=== PATIENT | female | born 1980 | race Caucasian/White ===

== ENCOUNTER 2019-03-21 15:32 | Observation (INO) | payer OTHER ==
[2019-03-21] MEDS ORDERED: Sodium Chloride 0.9% 2.5 ML Syringe FLUSH PRN (16:11)
[2019-03-21] MEDS ORDERED: Sodium Chloride 0.9% 10 ML Syringe FLUSH PRN (16:11)
--- NOTE | 2019-03-21 16:30 | EDM.PDOC ---
ED HPI GENERAL MEDICAL PROBLEM - General Chief Complaint: General Stated Complaint: BLACK OUT Time Seen by Provider: 03/21/19 16:30 Source of Information: Reports: Patient History Limitations: Reports: No Limitations - History of Present Illness INITIAL COMMENTS - FREE TEXT/NARRATIVE: HISTORY AND PHYSICAL: History of present illness: Patient is a 38-year-old female presents to the ED With complaint of near syncope. She was recently diagnosed with Hodgkin's lymphoma, sees oncology in [place] and scheduled to start chemotherapy next week. She states over the past couple of days she is having episodes where her vision goes black and she gets slightly dizzy. She has not yet passed out but today felt like she was going to. She has a mass on the right side of her neck and the near-syncope only occurs when she has the right arm above her head such as when brushing or washing her hair. She denies fevers, chills, chest pain, shortness of breath, abdominal pain. She does have nausea and vomiting but this is not new or worsening. She denies dysuria or hematuria. Review of systems: As per history of present illness and below otherwise all systems reviewed and negative. Past medical history: As per history of present illness and as reviewed below otherwise noncontributory. Surgical history: As per history of present illness and as reviewed below otherwise noncontributory. Social history: No reported history of drug or alcohol abuse. Family history: As per history of present illness and as reviewed below otherwise noncontributory. Physical exam: General: Patient sitting comfortably in no acute distress and nontoxic appearing HEENT: There is a large mass noted to the right supraclavicular area. Atraumatic , normocephalic, pupils reactive, negative for conjunctival pallor or scleral icterus, mucous membranes moist, throat clear, neck supple, nontender, trachea midline. No meningeal signs. Lungs: Clear to auscultation, breath sounds equal bilaterally, chest nontender. Heart: S1S2, regular, negative for clicks, rubs, or overt murmur. Abdomen: Soft, nondistended, nontender. Negative for masses or hepatosplenomegaly. Negative for costovertebral tenderness. No rigidity, rebound , guarding. Pelvis: Stable nontender. Genitourinary: Deferred. Rectal: Deferred. Extremities: Atraumatic, negative for cords or calf pain. Neurovascular unremarkable. Neuro: Awake, alert, oriented. Cranial nerves II through XII unremarkable. Cerebellum unremarkable. Motor and sensory unremarkable throughout. Exam nonfocal. Notes: Unable to reach patient's oncologist. Patient was admitted to observation. Diagnostics: CBC, CMP, lactate, UA, lactate, blood culture x 2, CT Neck w/ and w/o contrast Therapeutics: 1L NS IV 1g Rocephin IV Prescriptions: Impression: UTI Plan: Discussed with Dr. Garcia, patient admitted to observation for IV antibiotics. Definitive disposition and diagnosis as appropriate pending reevaluation and review of above. - Related Data Allergies Allergy/AdvReac Type Severity Reaction Status Date / Time No Known Allergies Allergy Verified 03/21/19 15:45 Home Meds: Home Meds Albuterol Sulfate [Albuterol Sulfate Hfa] 1 03/21/19 [History] Ondansetron [Zofran] 4 mg PO Q6H 03/21/19 [History] Venlafaxine [Effexor] 25 mg PO 03/21/19 [History] ED ROS GENERAL - Review of Systems Review Of Systems: Comprehensive ROS is negative, except as noted in HPI. ED EXAM, GENERAL - Physical Exam Exam: See Below (see dictation) Course - Vital Signs Last Recorded V/S: Last Vital Signs Temp 98.0 F 03/21/19 15:40 Pulse 94 03/21/19 18:24 Resp 16 03/21/19 18:24 BP 121/67 03/21/19 18:24 Pulse Ox 94 L 03/21/19 18:24 Orthostatic Blood Pressure [ 101/60 Standing] Orthostatic Blood Pressure [ 99/56 Sitting] Orthostatic Blood Pressure [ 99/63 Supine] - Orders/Labs/Meds Orders: Active Orders 24 hr Category Date Time Status Admission Status [Patient Status] [ADT] Stat ADT 03/21/19 19:39 Ordered Chest 1V Frontal [CR] Stat Exams 03/21/19 19:04 Ordered CULTURE BLOOD [BC] Stat Lab 03/21/19 16:50 Received CULTURE BLOOD [BC] Stat Lab 03/21/19 17:00 Received CULTURE URINE [RM] Stat Lab 03/21/19 15:49 Received Sodium Chloride 0.9% [Saline Flush] Med 03/21/19 16:11 Active 10 ml FLUSH ASDIRECTED PRN Sodium Chloride 0.9% [Saline Flush] Med 03/21/19 16:11 Active 2.5 ml FLUSH ASDIRECTED PRN Blood Culture x2 Reflex Set [OM.PC] Stat Oth 03/21/19 16:43 Ordered Saline Lock Insert [OM.PC] Stat Oth 03/21/19 16:11 Ordered Medication Orders Sodium Chloride (Saline Flush) 10 ml FLUSH ASDIRECTED PRN PRN Reason: Keep Vein Open Sodium Chloride (Saline Flush) 2.5 ml FLUSH ASDIRECTED PRN PRN Reason: Keep Vein Open Labs: Laboratory Tests 03/21/19 03/21/19 03/21/19 Range/Units 15:49 15:49 16:23 WBC 18.61 H (4.0-11.0) K/uL RBC 4.05 L (4.30-5.90) M/uL Hgb 9.7 L (12.0-16.0) g/dL Hct 30.6 L (36.0-46.0) % MCV 75.6 L (80.0-98.0) fL MCH 24.0 L (27.0-32.0) pg MCHC 31.7 (31.0-37.0) g/dL RDW Std Deviation 43.6 (28.0-62.0) fl RDW Coeff of [place] 16 H (11.0-15.0) % Plt Count 579 H (150-400) K/uL MPV 7.90 (7.40-12.00) fL Neut % (Auto) 85.4 H (48.0-80.0) % Lymph % (Auto) 6.9 L (16.0-40.0) % [place] % (Auto) 6.8 (0.0-15.0) % Eos % (Auto) 0.8 (0.0-7.0) % Baso % (Auto) 0.1 (0.0-1.5) % Neut # (Auto) 15.9 H (1.4-5.7) K/uL Lymph # (Auto) 1.3 (0.6-2.4) K/uL [place] # (Auto) 1.3 H (0.0-0.8) K/uL Eos # (Auto) 0.1 (0.0-0.7) K/uL Baso # (Auto) 0.0 (0.0-0.1) K/uL Nucleated RBC % 0.0 /100WBC Nucleated RBCs # 0 K/uL Lactate (0.20-2.00) mmol/L Sodium (136-145) mmol/L Potassium (3.5-5.1) mmol/L Chloride (98-107) mmol/L Carbon Dioxide (21.0-32.0) mmol/L BUN (7.0-18.0) mg/dL Creatinine (0.6-1.0) mg/dL Est Cr Clr Drug Dosing mL/min Estimated GFR (MDRD) ml/min Glucose (74-106) mg/dL Calcium (8.5-10.1) mg/dL Total Bilirubin (0.2-1.0) mg/dL AST (15-37) IU/L ALT (14-63) IU/L Alkaline Phosphatase (46-116) U/L Troponin I (0.000-0.056) ng/mL Total Protein (6.4-8.2) g/dL Albumin (3.4-5.0) g/dL Globulin (2.6-4.0) g/dL Albumin/Globulin Ratio (0.9-1.6) Urine Color ORANGE Urine Appearance HAZY Urine pH 6.0 (5.0-8.0) Ur Specific [place] 1.025 (1.001-1.035) Urine Protein 30 H (NEGATIVE) mg/dL Urine Glucose (UA) NEGATIVE (NEGATIVE) mg/dL Urine Ketones TRACE H (NEGATIVE) mg/dL Urine Occult Blood NEGATIVE (NEGATIVE) Urine Nitrite POSITIVE H (NEGATIVE) Urine Bilirubin MODERATE H (NEGATIVE) Urine Ictotest POSITIVE Urine Urobilinogen 4.0 H (<2.0) EU/dL Ur Leukocyte Esterase TRACE H (NEGATIVE) Urine RBC 0-3 (0-2/HPF) Urine WBC 3-5 (0-5/HPF) Ur Epithelial Cells FEW (NONE-FEW) Urine Bacteria 2+ H (NEGATIVE) Hyaline Casts 0-2 (0-2/LPF) Urine Mucus MODERATE (NONE-MOD) Urine HCG, Qual NEGATIVE (NEGATIVE) 03/21/19 03/21/19 Range/Units 16:23 17:00 WBC (4.0-11.0) K/uL RBC (4.30-5.90) M/uL Hgb (12.0-16.0) g/dL Hct (36.0-46.0) % MCV (80.0-98.0) fL MCH (27.0-32.0) pg MCHC (31.0-37.0) g/dL RDW Std Deviation (28.0-62.0) fl RDW Coeff of [place] (11.0-15.0) % Plt Count (150-400) K/uL MPV (7.40-12.00) fL Neut % (Auto) (48.0-80.0) % Lymph % (Auto) (16.0-40.0) % [place] % (Auto) (0.0-15.0) % Eos % (Auto) (0.0-7.0) % Baso % (Auto) (0.0-1.5) % Neut # (Auto) (1.4-5.7) K/uL Lymph # (Auto) (0.6-2.4) K/uL [place] # (Auto) (0.0-0.8) K/uL Eos # (Auto) (0.0-0.7) K/uL Baso # (Auto) (0.0-0.1) K/uL Nucleated RBC % /100WBC Nucleated RBCs # K/uL Lactate 0.7 (0.20-2.00) mmol/L Sodium 133 L (136-145) mmol/L Potassium 4.5 (3.5-5.1) mmol/L Chloride 95 L (98-107) mmol/L Carbon Dioxide 28.6 (21.0-32.0) mmol/L BUN 17 (7.0-18.0) mg/dL Creatinine 0.8 (0.6-1.0) mg/dL Est Cr Clr Drug Dosing 90.50 mL/min Estimated GFR (MDRD) > 60.0 ml/min Glucose 194 H (74-106) mg/dL Calcium 9.6 (8.5-10.1) mg/dL Total Bilirubin 0.7 (0.2-1.0) mg/dL AST 10 L (15-37) IU/L ALT 10 L (14-63) IU/L Alkaline Phosphatase 419 H (46-116) U/L Troponin I < 0.050 (0.000-0.056) ng/mL Total Protein 8.5 H (6.4-8.2) g/dL Albumin 2.2 L (3.4-5.0) g/dL Globulin 6.3 H (2.6-4.0) g/dL Albumin/Globulin Ratio 0.4 L (0.9-1.6) Urine Color Urine Appearance Urine pH (5.0-8.0) Ur Specific [place] (1.001-1.035) Urine Protein (NEGATIVE) mg/dL Urine Glucose (UA) (NEGATIVE) mg/dL Urine Ketones (NEGATIVE) mg/dL Urine Occult Blood (NEGATIVE) Urine Nitrite (NEGATIVE) Urine Bilirubin (NEGATIVE) Urine Ictotest Urine Urobilinogen (<2.0) EU/dL Ur Leukocyte Esterase (NEGATIVE) Urine RBC (0-2/HPF) Urine WBC (0-5/HPF) Ur Epithelial Cells (NONE-FEW) Urine Bacteria (NEGATIVE) Hyaline Casts (0-2/LPF) Urine Mucus (NONE-MOD) Urine HCG, Qual (NEGATIVE) Meds: Medications Generic Name Dose Route Start Last Admin Trade Name Freq PRN Reason Stop Dose Admin Sodium Chloride 10 ml 03/21/19 16:11 Saline Flush FLUSH ASDIRECTED PRN Keep Vein Open Sodium Chloride 2.5 ml 03/21/19 16:11 Saline Flush FLUSH ASDIRECTED PRN Keep Vein Open Discontinued Medications Generic Name Dose Route Start Last Admin Trade Name Freq PRN Reason Stop Dose Admin Ceftriaxone Sodium/Dextrose 1 50 mls @ 100 mls/hr 03/21/19 16:44 03/21/19 17: 09 gm/ Premix IV 03/21/19 17:13 100 mls/hr ONETIME ONE Administration Sodium Chloride 1,000 mls @ 999 mls/hr 03/21/19 17:11 03/21/19 18:23 Normal Saline IV 03/21/19 18:11 999 mls/hr STAT ONE Infusion Iopamidol 80 ml 03/21/19 18:22 03/21/19 18:23 Isovue Multipack-370 (76%) IVPUSH 03/21/19 18:23 80 ml ONETIME STA Administration Departure - Departure Time of Disposition: 19:19 Disposition: Refer to Observation Condition: Good Clinical Impression: UTI (urinary tract infection), Sepsis - Discharge Information Referrals: Edgardo Son MD [Primary Care Provider] - Forms: ED Department Discharge Sepsis Event Note - Evaluation Sepsis Screening Result: No Definite Risk - Focused Exam Vital Signs: Vital Signs Temp Pulse Resp BP Pulse Ox 03/21/19 18:24 94 16 121/67 94 L 03/21/19 15:40 98.0 F 115 H 16 95/55 L 94 L Date Exam was Performed: 03/21/19 Time Exam was Performed: 19:41 - My Orders Last 24 Hours: My Active Orders 03/21/19 16:11 Sodium Chloride 0.9% [Saline Flush] 10 ml FLUSH ASDIRECTED PRN Sodium Chloride 0.9% [Saline Flush] 2.5 ml FLUSH ASDIRECTED PRN Saline Lock Insert [OM.PC] Stat 03/21/19 16:43 Blood Culture x2 Reflex Set [OM.PC] Stat 03/21/19 16:50 CULTURE BLOOD [BC] Stat 03/21/19 17:00 CULTURE BLOOD [BC] Stat 03/21/19 19:04 Chest 1V Frontal [CR] Stat 03/21/19 19:39 Admission Status [Patient Status] [ADT] Stat - Assessment/Plan Last 24 Hours: My Active Orders 03/21/19 16:11 Sodium Chloride 0.9% [Saline Flush] 10 ml FLUSH ASDIRECTED PRN Sodium Chloride 0.9% [Saline Flush] 2.5 ml FLUSH ASDIRECTED PRN Saline Lock Insert [OM.PC] Stat 03/21/19 16:43 Blood Culture x2 Reflex Set [OM.PC] Stat 03/21/19 16:50 CULTURE BLOOD [BC] Stat 03/21/19 17:00 CULTURE BLOOD [BC] Stat 03/21/19 19:04 Chest 1V Frontal [CR] Stat 03/21/19 19:39 Admission Status [Patient Status] [ADT] Stat
[2019-03-21] MEDS ORDERED: cefTRIAXone 1 GM in Premix Bag 1 BAG IV ONE (16:44)
[2019-03-21 17:03] LABS: BLOOD UREA NITROGEN,BUN 17 mg/dL (7.0-18.0); CARBON DIOXIDE,CO2 28.6 mmol/L (21.0-32.0); CHLORIDE,CL 95 mmol/L (98-107); GLUCOSE RANDOM 194 mg/dL (74-106); POTASSIUM,K 4.5 mmol/L (3.5-5.1); SODIUM,NA 133 mmol/L (136-145)
[2019-03-21] MEDS ORDERED: Sodium Chloride 0.9% 1,000 ML IV ONE ×2 (17:11→19:42)
[2019-03-21] MEDS ORDERED: Iopamidol 755 MG/ML 200 ML Multipack Bottle IVPUSH STA (18:22)
--- NOTE | 2019-03-21 19:01 | CT ---
INDICATION: RIGHT NECK MASS DUE TO HODGKINS LYMPHOMA, RECENT PRE-SCOPE WITH RT ARM ABOVE HEAD TECHNIQUE: CT of the neck before and after administration of Omnipaque 350 IV iodinated contrast agent. Coronal and sagittal reconstructions. COMPARISON: 01/23/2019 CT FINDINGS: Interval enlargement of a right level 3 conglomerate of metastatic lymph nodes measuring up to 2.5 centimeters x 2 centimeters axially previously 2.2 x 1.7 cm interval enlargement of a left level 4 lymph node measuring 2.3 x 1.5 cm previously 1.7 by 1.3 cm, interval enlargement of several conglomerate lymph nodes in the right suprascapular region measuring up to 8.1 centimeter previously 7.0 cm. All the major vascular structures opacify normally with contrast material. The salivary glands and thyroid gland are normal in appearance. Mild right maxillary sinus disease. The oral cavity, pharyngeal and laryngeal spaces are normal in appearance. No periapical lucencies surrounding the visualized teeth. The suprahyoid and infrahyoid spaces are normal. No lytic or blastic process within the imaged osseous structures. The paraspinous muscles are symmetric and normal in appearance. Visualized portions of the brain are within normal limits. The orbital contents are normal. New moderate right pleural effusion. Enlargement of the 2.8 cm mass in the right lung apex previously 2.1 cm. Several new left upper lobe metastases are noted. IMPRESSION: 1. Enlargement of bilateral cervical and supraclavicular lymph nodes. Enlargement of mediastinal lymph nodes. 2. New moderate right pleural effusion. Enlargement of the 2.8 cm mass in the right lung apex previously 2.1 cm. Several new left upper lobe metastases are noted. 3. Above findings are consistent with progression of disease. Please note that all CT scans at this facility use dose modulation, iterative reconstruction, and/or weight-based dosing when appropriate to reduce radiation dose to as low as reasonably achievable. Dictated by Thong Baker MD @ Mar 21 2019 6:47PM Signed by Dr. Thong Baker @ Mar 21 2019 7:00PM
[2019-03-21] MEDS ORDERED: Ondansetron 4 MG/2 ML SDV IVPUSH PRN (19:57)
--- NOTE | 2019-03-21 20:22 | CR ---
Indication: Pain, shortness of breath Technique: Chest 1 view Comparison: January 16, 2019 Findings/Impression: Stable cardiac size. There is consolidation in the mid to lower right lung concerning for pneumonia. There is also a new round focal area of density along the left mid cardiac margin which may represent a no other site of infection. No pneumothorax. Likely small right pleural effusion. Consider chest CT for further evaluation. Residual oral contrast noted in the collecting systems of the kidneys bilaterally. Osseous structures are intact. Dictated by Radha Beth MD @ Mar 21 2019 8:21PM Signed by Dr. Radha Beth @ Mar 21 2019 8:21PM
--- NOTE | 2019-03-21 22:04 | PCM.HP.2 ---
H&P History of Present Illness - General Date of Service: 03/21/19 Admit Problem/Dx: Admission Diagnosis/Problem Admission Diagnosis/Problem UTI, Urinary tract infectious disease - History of Present Illness Initial Comments - Free Text/Narative: Patient is a 38-year-old female with PMH of HL and DM type 1 presents to the ED With complaint of near syncope. She was recently diagnosed with Hodgkin's lymphoma in December and follows up at [place], she states she is scheduled to start chemotherapy next week. Patient states that over past couple of days she is having episodes per-syncope, her vision goes black and feels lightheaded. Patient has a mass on the right side of her neck and symptoms occur when she has the right arm above her head which shower or brushing her hair. Patient denies fevers, chills, chest pain, shortness of breath, abdominal pain, nausea and vomiting, dysuria or hematuria. Patient was found to have leucocytosis and UA showed UTI. CXR was obtained in ER showed opacification, possible PNA although patient denied any cough, sob, fever, could be worsening malignancy. Patient is being admitted for further management. Duration of Symptoms: Reports: Day(s):, Recurring - Related Data Allergies/Adverse Reactions: Allergies Allergy/AdvReac Type Severity Reaction Status Date / Time No Known Allergies Allergy Verified 03/22/19 00:14 Home Medications: Home Meds Albuterol Sulfate [Albuterol Sulfate Hfa] 1 03/21/19 [History] Insulin Glarg,Human.Rec.Analog [Lantus] 10 mg BEDTIME 03/21/19 [History] Ondansetron [Zofran] 4 mg PO Q6H 03/21/19 [History] Venlafaxine [Effexor] 25 mg PO 03/21/19 [History] Past Medical History HEENT History: Reports: Allergic Rhinitis Other HEENT History: summer allergies [employer] History: Reports: Other OB/BYN History: 1 Endocrine/Metabolic History: Reports: Diabetes, Type II Oncologic (Cancer) History: Reports: Lymphoma - Past Surgical History HEENT Surgical History: Reports: None Social & Family History - Family History Family Medical History: Noncontributory HEENT: Reports: Allergic Rhinitis Cardiac: Reports: CA Other Respiratory Family Hisory: emphysema Other GI Family History: ulcers Dermatologic: Reports: None Oncologic: Reports: Breast, Colon, Hodgkin's Lymphoma, Non-Hodgkin's Lymphoma - Tobacco Use Smoking Status *Q: Never Smoker Second Hand Smoke Exposure: No - Caffeine Use Caffeine Use: Reports: None - Recreational Drug Use Recreational Drug Use: No H&P Review of Systems - Review of Systems: Review Of Systems: See Below General: Reports: Weight Loss. Denies: Fever, Chills, Malaise, Weight Gain HEENT: Denies: Dysphasia, Ear Pain, Eye Pain Pulmonary: Denies: Shortness of Breath, Wheezing, Pleuritic Chest Pain Cardiovascular: Reports: Lightheadedness. Denies: Chest Pain, Palpitations, Dyspnea on Exertion Gastrointestinal: Denies: Abdominal Pain, Anorexia, Black Stool Genitourinary: Denies: Dysuria, Frequency, Burning Musculoskeletal: Denies: Neck Pain, Shoulder Pain, Arm Pain Skin: Denies: Cyanosis, Jaundice, Mottled Psychiatric: Denies: Confusion, Depression, Mood Lability Exam - Vital Signs Vital Signs: Last Vital Signs Temp 36.6 C 03/21/19 20:31 Pulse 95 03/21/19 20:31 Resp 16 03/21/19 20:31 BP 99/64 03/21/19 20:31 Pulse Ox 95 03/21/19 20:31 Orthostatic Blood Pressure [ 101/60 Standing] Orthostatic Blood Pressure [ 99/56 Sitting] Orthostatic Blood Pressure [ 99/63 Supine] Weight: 58.468 kg - Exam General: Alert, Oriented, Cooperative Neck: Trachea Midline, Other (LAD, mass right neck, anterior triangle ) Lungs: Clear to Auscultation, Normal Respiratory Effort Cardiovascular: Regular Rate, Regular Rhythm, Normal S1, Normal S2 GI/Abdominal Exam: Normal Bowel Sounds, Soft, Non-Tender, No Organomegaly, No Distention, No Abnormal Bruit Peripheral Pulses: 3+: Dorsalis Pedis (L), Dorsalis Pedis (R) Skin: Warm, Dry - Patient Data Lab Results Last 24 hrs: Laboratory Results - last 24 hr 03/21/19 03/21/19 03/21/19 Range/Units 15:49 15:49 16:23 WBC 18.61 H (4.0-11.0) K/uL RBC 4.05 L (4.30-5.90) M/uL Hgb 9.7 L (12.0-16.0) g/dL Hct 30.6 L (36.0-46.0) % MCV 75.6 L (80.0-98.0) fL MCH 24.0 L (27.0-32.0) pg MCHC 31.7 (31.0-37.0) g/dL RDW Std Deviation 43.6 (28.0-62.0) fl RDW Coeff of [place] 16 H (11.0-15.0) % Plt Count 579 H (150-400) K/uL MPV 7.90 (7.40-12.00) fL Neut % (Auto) 85.4 H (48.0-80.0) % Lymph % (Auto) 6.9 L (16.0-40.0) % Brown % (Auto) 6.8 (0.0-15.0) % Eos % (Auto) 0.8 (0.0-7.0) % Baso % (Auto) 0.1 (0.0-1.5) % Neut # (Auto) 15.9 H (1.4-5.7) K/uL Lymph # (Auto) 1.3 (0.6-2.4) K/uL Brown # (Auto) 1.3 H (0.0-0.8) K/uL Eos # (Auto) 0.1 (0.0-0.7) K/uL Baso # (Auto) 0.0 (0.0-0.1) K/uL Nucleated RBC % 0.0 /100WBC Nucleated RBCs # 0 K/uL Lactate (0.20-2.00) mmol/L Sodium (136-145) mmol/L Potassium (3.5-5.1) mmol/L Chloride (98-107) mmol/L Carbon Dioxide (21.0-32.0) mmol/L BUN (7.0-18.0) mg/dL Creatinine (0.6-1.0) mg/dL Est Cr Clr Drug Dosing mL/min Estimated GFR (MDRD) ml/min Glucose (74-106) mg/dL Calcium (8.5-10.1) mg/dL Total Bilirubin (0.2-1.0) mg/dL AST (15-37) IU/L ALT (14-63) IU/L Alkaline Phosphatase (46-116) U/L Troponin I (0.000-0.056) ng/mL Total Protein (6.4-8.2) g/dL Albumin (3.4-5.0) g/dL Globulin (2.6-4.0) g/dL Albumin/Globulin Ratio (0.9-1.6) Urine Color ORANGE Urine Appearance HAZY Urine pH 6.0 (5.0-8.0) Ur Specific [place] 1.025 (1.001-1.035) Urine Protein 30 H (NEGATIVE) mg/dL Urine Glucose (UA) NEGATIVE (NEGATIVE) mg/dL Urine Ketones TRACE H (NEGATIVE) mg/dL Urine Occult Blood NEGATIVE (NEGATIVE) Urine Nitrite POSITIVE H (NEGATIVE) Urine Bilirubin MODERATE H (NEGATIVE) Urine Ictotest POSITIVE Urine Urobilinogen 4.0 H (<2.0) EU/dL Ur Leukocyte Esterase TRACE H (NEGATIVE) Urine RBC 0-3 (0-2/HPF) Urine WBC 3-5 (0-5/HPF) Ur Epithelial Cells FEW (NONE-FEW) Urine Bacteria 2+ H (NEGATIVE) Hyaline Casts 0-2 (0-2/LPF) Urine Mucus MODERATE (NONE-MOD) Urine HCG, Qual NEGATIVE (NEGATIVE) 03/21/19 03/21/19 Range/Units 16:23 17:00 WBC (4.0-11.0) K/uL RBC (4.30-5.90) M/uL Hgb (12.0-16.0) g/dL Hct (36.0-46.0) % MCV (80.0-98.0) fL MCH (27.0-32.0) pg MCHC (31.0-37.0) g/dL RDW Std Deviation (28.0-62.0) fl RDW Coeff of [place] (11.0-15.0) % Plt Count (150-400) K/uL MPV (7.40-12.00) fL Neut % (Auto) (48.0-80.0) % Lymph % (Auto) (16.0-40.0) % Brown % (Auto) (0.0-15.0) % Eos % (Auto) (0.0-7.0) % Baso % (Auto) (0.0-1.5) % Neut # (Auto) (1.4-5.7) K/uL Lymph # (Auto) (0.6-2.4) K/uL Brown # (Auto) (0.0-0.8) K/uL Eos # (Auto) (0.0-0.7) K/uL Baso # (Auto) (0.0-0.1) K/uL Nucleated RBC % /100WBC Nucleated RBCs # K/uL Lactate 0.7 (0.20-2.00) mmol/L Sodium 133 L (136-145) mmol/L Potassium 4.5 (3.5-5.1) mmol/L Chloride 95 L (98-107) mmol/L Carbon Dioxide 28.6 (21.0-32.0) mmol/L BUN 17 (7.0-18.0) mg/dL Creatinine 0.8 (0.6-1.0) mg/dL Est Cr Clr Drug Dosing 90.50 mL/min Estimated GFR (MDRD) > 60.0 ml/min Glucose 194 H (74-106) mg/dL Calcium 9.6 (8.5-10.1) mg/dL Total Bilirubin 0.7 (0.2-1.0) mg/dL AST 10 L (15-37) IU/L ALT 10 L (14-63) IU/L Alkaline Phosphatase 419 H (46-116) U/L Troponin I < 0.050 (0.000-0.056) ng/mL Total Protein 8.5 H (6.4-8.2) g/dL Albumin 2.2 L (3.4-5.0) g/dL Globulin 6.3 H (2.6-4.0) g/dL Albumin/Globulin Ratio 0.4 L (0.9-1.6) Urine Color Urine Appearance Urine pH (5.0-8.0) Ur Specific [place] (1.001-1.035) Urine Protein (NEGATIVE) mg/dL Urine Glucose (UA) (NEGATIVE) mg/dL Urine Ketones (NEGATIVE) mg/dL Urine Occult Blood (NEGATIVE) Urine Nitrite (NEGATIVE) Urine Bilirubin (NEGATIVE) Urine Ictotest Urine Urobilinogen (<2.0) EU/dL Ur Leukocyte Esterase (NEGATIVE) Urine RBC (0-2/HPF) Urine WBC (0-5/HPF) Ur Epithelial Cells (NONE-FEW) Urine Bacteria (NEGATIVE) Hyaline Casts (0-2/LPF) Urine Mucus (NONE-MOD) Urine HCG, Qual (NEGATIVE) Result Diagrams: 03/23/19 05:50 03/23/19 05:50 Sepsis Event Note - Evaluation Sepsis Screening Result: No Definite Risk - Focused Exam Vital Signs: Vital Signs Temp Pulse Resp BP Pulse Ox 03/21/19 20:31 36.6 C 95 16 99/64 95 03/21/19 18:24 94 16 121/67 94 L 03/21/19 15:40 36.7 C 115 H 16 95/55 L 94 L Date Exam was Performed: 03/23/19 Time Exam was Performed: 14:06 - Problem List (1) UTI (urinary tract infection) SNOMED Code(s): 68210161 ICD Code: N39.0 - URINARY TRACT INFECTION, SITE NOT SPECIFIED Status: Acute Current Visit: Yes (2) Sepsis SNOMED Code(s): 62633737 ICD Code: A41.9 - SEPSIS, UNSPECIFIED ORGANISM Status: Acute Current Visit: Yes Problem List Initiated/Reviewed/Updated: Yes Orders Last 24hrs: Active Orders 24 hr Category Date Time Status Admission Status [Patient Status] [ADT] Stat ADT 03/21/19 19:44 Active Ambulate [RC] ASDIRECTED Care 03/21/19 19:57 Active Antiembolic Devices [RC] PER UNIT ROUTINE Care 03/21/19 20:00 Active Oxygen Therapy [RC] PRN Care 03/21/19 19:58 Active VTE/DVT Education [RC] PER UNIT ROUTINE Care 03/21/19 19:58 Active Vital Signs [RC] Q4H Care 03/21/19 19:58 Active ADA Diabetic [[place] [employer] Diet] [DIET Diet 03/22/19 Breakfast Active ] BMP [BASIC METABOLIC PANEL,BMP] [CHEM] AM Lab 03/22/19 05:11 Ordered CBC WITH AUTO DIFF [HEME] AM Lab 03/22/19 05:11 Ordered CULTURE BLOOD [BC] Stat Lab 03/21/19 16:50 Received CULTURE BLOOD [BC] Stat Lab 03/21/19 17:00 Received CULTURE URINE [RM] Stat Lab 03/21/19 15:49 Received MAGNESIUM [CHEM] AM Lab 03/22/19 05:11 Ordered PHOSPHORUS [CHEM] AM Lab 03/22/19 05:11 Ordered Insulin Glarg,Human.Rec.Analog [LantUS Solostar] Med 03/21/19 21:38 Active 10 units SUBCUT BEDTIME Ondansetron [Zofran] Med 03/21/19 19:57 Active 4 mg IVPUSH Q4H PRN Sodium Chloride 0.9% [Normal Saline] 1,000 ml Med 03/21/19 20:00 Active IV ASDIRECTED Sodium Chloride 0.9% [Saline Flush] Med 03/21/19 16:11 Active 10 ml FLUSH ASDIRECTED PRN Sodium Chloride 0.9% [Saline Flush] Med 03/21/19 16:11 Active 2.5 ml FLUSH ASDIRECTED PRN Venlafaxine [Effexor] Med 03/22/19 09:00 Pending 25 mg PO DAILY cefTRIAXone [Rocephin] 1 gm Med 03/22/19 09:00 Active Sodium Chloride 0.9% [Normal Saline] 50 ml IV Q12H Blood Culture x2 Reflex Set [OM.PC] Stat Oth 03/21/19 16:43 Ordered Saline Lock Insert [OM.PC] Stat Oth 03/21/19 16:11 Ordered Sequential Compression Device [OM.PC] Per Unit Routine Oth 03/21/19 19:59 Ordered Resuscitation Status Routine Resus Stat 03/21/19 19:57 Ordered Medication Orders Sodium Chloride (Normal Saline) 1,000 mls @ 125 mls/hr IV ASDIRECTED [facility] Ceftriaxone Sodium 1 gm/ (Sodium Chloride) 50 mls @ 100 mls/hr IV Q12H [facility] Insulin Glargine (Lantus Solostar) 10 units SUBCUT BEDTIME [facility] Ondansetron HCl (Zofran) 4 mg IVPUSH Q4H PRN PRN Reason: Nausea/Vomiting Sodium Chloride (Saline Flush) 10 ml FLUSH ASDIRECTED PRN PRN Reason: Keep Vein Open Sodium Chloride (Saline Flush) 2.5 ml FLUSH ASDIRECTED PRN PRN Reason: Keep Vein Open Venlafaxine HCl (Effexor) 25 mg PO DAILY [facility] Assessment/Plan Comment:: 38 y/o Female, come sin with c/o pre-syncope h/o HL, mass in anterior triangle compressing the carotid sinus possibly resulting in the pre-syncope episodes, also with soft pressures, states hasn't been eating or drinking well which likely contributing to pre-syncope UA significant for UTI, CXR shows some opacification, worsening cancer vs CAP vs effusion , no cough, fever, although does have some pain on deep inspiration Start IV fluid resuscitation Start IV ceftriaxone for now F/u on blood cultures F/u on urine cultures cont Lantus, SSI Monitor and replete electrolytes as needed
[2019-03-21] MEDS: Insulin Glargine,Human Rec. Analog 100 Units/ML 3 ML Pen SUBCUT SCH (22:14)
[2019-03-22] MEDS: Sodium Chloride 0.9% 1,000 ML IV SCH ×3 (02:35→19:41)
[2019-03-22 06:45] LABS: BLOOD UREA NITROGEN,BUN 16 mg/dL (7.0-18.0); CARBON DIOXIDE,CO2 25.5 mmol/L (21.0-32.0); CHLORIDE,CL 100 mmol/L (98-107); GLUCOSE RANDOM 277 mg/dL (74-106); POTASSIUM,K 4.5 mmol/L (3.5-5.1); SODIUM,NA 135 mmol/L (136-145)
[2019-03-22] MEDS ORDERED: Magnesium Sulfate (4.06 MEQ/ML) 1 GM/2 ML SDV IV ONE (08:08)
[2019-03-22] MEDS ORDERED: VENLAFAXINE 25 MG PO SCH (09:00)
[2019-03-22] MEDS: Dronabinol 2.5 MG Cap PO SCH ×2 (09:25→20:32)
[2019-03-22] MEDS ORDERED: Venlafaxine 37.5 MG Cap.ER PO SCH (09:33)
[2019-03-22] MEDS: cefTRIAXone 1 GM in Sodium Chloride 0.9% 50 ML IV SCH ×2 (09:53→20:31)
[2019-03-22] MEDS: Venlafaxine 37.5 MG Cap.ER PO SCH (09:58)
[2019-03-22] MEDS ORDERED: Azithromycin 250 MG Tab PO ONE (10:42)
--- NOTE | 2019-03-22 12:14 | PCM.PN ---
- General Info Date of Service: 03/22/19 Subjective Update: Patient seen at bedside; not endorsing any new complaints; still is having problems with her nausea and appetite and fatigue. Denies any dysuria/polyuria , chest pain and no shortness of breath. Does endorse a mild nonproductive cough however. - Review of Systems General: Reports: Weakness, Fatigue. Denies: Chills HEENT: Reports: No Symptoms Pulmonary: Reports: Cough. Denies: Shortness of Breath, Sputum, Wheezing Cardiovascular: Reports: Dyspnea on Exertion. Denies: Chest Pain, Palpitations , Edema, Lightheadedness Gastrointestinal: Reports: Decreased Appetite, Nausea. Denies: Abdominal Pain, Constipation, Diarrhea Genitourinary: Reports: No Symptoms Musculoskeletal: Denies: Neck Pain Skin: Reports: No Symptoms Neurological: Reports: Dizziness, Headache. Denies: Syncope, Gait Disturbance Psychiatric: Reports: No Symptoms - Patient Data Vitals - Most Recent: Last Vital Signs Temp 98.7 F 03/22/19 12:10 Pulse 116 H 03/22/19 12:10 Resp 16 03/22/19 12:10 BP 104/62 03/22/19 12:10 Pulse Ox 96 03/22/19 12:10 Orthostatic Blood Pressure [ 101/60 Standing] Orthostatic Blood Pressure [ 99/56 Sitting] Orthostatic Blood Pressure [ 99/63 Supine] Weight - Most Recent: 128 lb 14.4 oz I&O - Last 24 Hours: Intake & Output 03/21/19 03/22/19 03/22/19 22:59 06:59 14:59 Intake Total 1137 Output Total 450 Balance 687 Lab Results Last 24 Hours: Laboratory Results - last 24 hr 03/21/19 03/21/19 03/21/19 Range/Units 15:49 15:49 16:23 WBC 18.61 H (4.0-11.0) K/uL RBC 4.05 L (4.30-5.90) M/uL Hgb 9.7 L (12.0-16.0) g/dL Hct 30.6 L (36.0-46.0) % MCV 75.6 L (80.0-98.0) fL MCH 24.0 L (27.0-32.0) pg MCHC 31.7 (31.0-37.0) g/dL RDW Std Deviation 43.6 (28.0-62.0) fl RDW Coeff of [place] 16 H (11.0-15.0) % Plt Count 579 H (150-400) K/uL MPV 7.90 (7.40-12.00) fL Neut % (Auto) 85.4 H (48.0-80.0) % Lymph % (Auto) 6.9 L (16.0-40.0) % [place] % (Auto) 6.8 (0.0-15.0) % Eos % (Auto) 0.8 (0.0-7.0) % Baso % (Auto) 0.1 (0.0-1.5) % Neut # (Auto) 15.9 H (1.4-5.7) K/uL Lymph # (Auto) 1.3 (0.6-2.4) K/uL [place] # (Auto) 1.3 H (0.0-0.8) K/uL Eos # (Auto) 0.1 (0.0-0.7) K/uL Baso # (Auto) 0.0 (0.0-0.1) K/uL Nucleated RBC % 0.0 /100WBC Nucleated RBCs # 0 K/uL Lactate (0.20-2.00) mmol/L Sodium (136-145) mmol/L Potassium (3.5-5.1) mmol/L Chloride (98-107) mmol/L Carbon Dioxide (21.0-32.0) mmol/L BUN (7.0-18.0) mg/dL Creatinine (0.6-1.0) mg/dL Est Cr Clr Drug Dosing mL/min Estimated GFR (MDRD) ml/min Glucose (74-106) mg/dL POC Glucose (60-110) mg/dL Calcium (8.5-10.1) mg/dL Phosphorus (2.6-4.7) mg/dL Magnesium (1.8-2.4) mg/dL Total Bilirubin (0.2-1.0) mg/dL AST (15-37) IU/L ALT (14-63) IU/L Alkaline Phosphatase (46-116) U/L Troponin I (0.000-0.056) ng/mL Total Protein (6.4-8.2) g/dL Albumin (3.4-5.0) g/dL Globulin (2.6-4.0) g/dL Albumin/Globulin Ratio (0.9-1.6) Urine Color ORANGE Urine Appearance HAZY Urine pH 6.0 (5.0-8.0) Ur Specific [place] 1.025 (1.001-1.035) Urine Protein 30 H (NEGATIVE) mg/dL Urine Glucose (UA) NEGATIVE (NEGATIVE) mg/dL Urine Ketones TRACE H (NEGATIVE) mg/dL Urine Occult Blood NEGATIVE (NEGATIVE) Urine Nitrite POSITIVE H (NEGATIVE) Urine Bilirubin MODERATE H (NEGATIVE) Urine Ictotest POSITIVE Urine Urobilinogen 4.0 H (<2.0) EU/dL Ur Leukocyte Esterase TRACE H (NEGATIVE) Urine RBC 0-3 (0-2/HPF) Urine WBC 3-5 (0-5/HPF) Ur Epithelial Cells FEW (NONE-FEW) Urine Bacteria 2+ H (NEGATIVE) Hyaline Casts 0-2 (0-2/LPF) Urine Mucus MODERATE (NONE-MOD) Urine HCG, Qual NEGATIVE (NEGATIVE) 03/21/19 03/21/19 03/22/19 Range/Units 16:23 17:00 05:55 WBC 16.41 H (4.0-11.0) K/uL RBC 3.86 L (4.30-5.90) M/uL Hgb 9.2 L (12.0-16.0) g/dL Hct 29.2 L (36.0-46.0) % MCV 75.6 L (80.0-98.0) fL MCH 23.8 L (27.0-32.0) pg MCHC 31.5 (31.0-37.0) g/dL RDW Std Deviation 44.3 (28.0-62.0) fl RDW Coeff of [place] 16 H (11.0-15.0) % Plt Count 554 H (150-400) K/uL MPV 8.10 (7.40-12.00) fL Neut % (Auto) 86.1 H (48.0-80.0) % Lymph % (Auto) 5.1 L (16.0-40.0) % [place] % (Auto) 8.0 (0.0-15.0) % Eos % (Auto) 0.7 (0.0-7.0) % Baso % (Auto) 0.1 (0.0-1.5) % Neut # (Auto) 14.1 H (1.4-5.7) K/uL Lymph # (Auto) 0.8 (0.6-2.4) K/uL [place] # (Auto) 1.3 H (0.0-0.8) K/uL Eos # (Auto) 0.1 (0.0-0.7) K/uL Baso # (Auto) 0.0 (0.0-0.1) K/uL Nucleated RBC % 0.0 /100WBC Nucleated RBCs # 0 K/uL Lactate 0.7 (0.20-2.00) mmol/L Sodium 133 L (136-145) mmol/L Potassium 4.5 (3.5-5.1) mmol/L Chloride 95 L (98-107) mmol/L Carbon Dioxide 28.6 (21.0-32.0) mmol/L BUN 17 (7.0-18.0) mg/dL Creatinine 0.8 (0.6-1.0) mg/dL Est Cr Clr Drug Dosing 90.50 mL/min Estimated GFR (MDRD) > 60.0 ml/min Glucose 194 H (74-106) mg/dL POC Glucose (60-110) mg/dL Calcium 9.6 (8.5-10.1) mg/dL Phosphorus (2.6-4.7) mg/dL Magnesium (1.8-2.4) mg/dL Total Bilirubin 0.7 (0.2-1.0) mg/dL AST 10 L (15-37) IU/L ALT 10 L (14-63) IU/L Alkaline Phosphatase 419 H (46-116) U/L Troponin I < 0.050 (0.000-0.056) ng/mL Total Protein 8.5 H (6.4-8.2) g/dL Albumin 2.2 L (3.4-5.0) g/dL Globulin 6.3 H (2.6-4.0) g/dL Albumin/Globulin Ratio 0.4 L (0.9-1.6) Urine Color Urine Appearance Urine pH (5.0-8.0) Ur Specific [place] (1.001-1.035) Urine Protein (NEGATIVE) mg/dL Urine Glucose (UA) (NEGATIVE) mg/dL Urine Ketones (NEGATIVE) mg/dL Urine Occult Blood (NEGATIVE) Urine Nitrite (NEGATIVE) Urine Bilirubin (NEGATIVE) Urine Ictotest Urine Urobilinogen (<2.0) EU/dL Ur Leukocyte Esterase (NEGATIVE) Urine RBC (0-2/HPF) Urine WBC (0-5/HPF) Ur Epithelial Cells (NONE-FEW) Urine Bacteria (NEGATIVE) Hyaline Casts (0-2/LPF) Urine Mucus (NONE-MOD) Urine HCG, Qual (NEGATIVE) 03/22/19 03/22/19 03/22/19 Range/Units 05:55 06:19 11:40 WBC (4.0-11.0) K/uL RBC (4.30-5.90) M/uL Hgb (12.0-16.0) g/dL Hct (36.0-46.0) % MCV (80.0-98.0) fL MCH (27.0-32.0) pg MCHC (31.0-37.0) g/dL RDW Std Deviation (28.0-62.0) fl RDW Coeff of [place] (11.0-15.0) % Plt Count (150-400) K/uL MPV (7.40-12.00) fL Neut % (Auto) (48.0-80.0) % Lymph % (Auto) (16.0-40.0) % [place] % (Auto) (0.0-15.0) % Eos % (Auto) (0.0-7.0) % Baso % (Auto) (0.0-1.5) % Neut # (Auto) (1.4-5.7) K/uL Lymph # (Auto) (0.6-2.4) K/uL [place] # (Auto) (0.0-0.8) K/uL Eos # (Auto) (0.0-0.7) K/uL Baso # (Auto) (0.0-0.1) K/uL Nucleated RBC % /100WBC Nucleated RBCs # K/uL Lactate (0.20-2.00) mmol/L Sodium 135 L (136-145) mmol/L Potassium 4.5 (3.5-5.1) mmol/L Chloride 100 (98-107) mmol/L Carbon Dioxide 25.5 (21.0-32.0) mmol/L BUN 16 (7.0-18.0) mg/dL Creatinine 0.7 (0.6-1.0) mg/dL Est Cr Clr Drug Dosing 102.55 mL/min Estimated GFR (MDRD) > 60.0 ml/min Glucose 277 H (74-106) mg/dL POC Glucose 261 H 258 H (60-110) mg/dL Calcium 8.3 L (8.5-10.1) mg/dL Phosphorus 3.9 (2.6-4.7) mg/dL Magnesium 1.7 L (1.8-2.4) mg/dL Total Bilirubin (0.2-1.0) mg/dL AST (15-37) IU/L ALT (14-63) IU/L Alkaline Phosphatase (46-116) U/L Troponin I (0.000-0.056) ng/mL Total Protein (6.4-8.2) g/dL Albumin (3.4-5.0) g/dL Globulin (2.6-4.0) g/dL Albumin/Globulin Ratio (0.9-1.6) Urine Color Urine Appearance Urine pH (5.0-8.0) Ur Specific [place] (1.001-1.035) Urine Protein (NEGATIVE) mg/dL Urine Glucose (UA) (NEGATIVE) mg/dL Urine Ketones (NEGATIVE) mg/dL Urine Occult Blood (NEGATIVE) Urine Nitrite (NEGATIVE) Urine Bilirubin (NEGATIVE) Urine Ictotest Urine Urobilinogen (<2.0) EU/dL Ur Leukocyte Esterase (NEGATIVE) Urine RBC (0-2/HPF) Urine WBC (0-5/HPF) Ur Epithelial Cells (NONE-FEW) Urine Bacteria (NEGATIVE) Hyaline Casts (0-2/LPF) Urine Mucus (NONE-MOD) Urine HCG, Qual (NEGATIVE) Med Orders - Current: Current Medications Dronabinol (Marinol) 2.5 mg PO BID [facility] Last Admin: 03/22/19 09:25 Dose: 2.5 mg Sodium Chloride (Normal Saline) 1,000 mls @ 125 mls/hr IV ASDIRECTED [facility] Last Admin: 03/22/19 11:52 Dose: 125 mls/hr Ceftriaxone Sodium 1 gm/ (Sodium Chloride) 50 mls @ 100 mls/hr IV Q12H [facility] Last Admin: 03/22/19 09:53 Dose: 100 mls/hr Insulin Aspart (Novolog) 0 unit SUBCUT TIDAC [facility]; Protocol Insulin Glargine (Lantus Solostar) 10 units SUBCUT BEDTIME [facility] Last Admin: 03/21/19 22:14 Dose: 10 units Ondansetron HCl (Zofran) 4 mg IVPUSH Q4H PRN PRN Reason: Nausea/Vomiting Last Admin: 03/22/19 06:15 Dose: 4 mg Sodium Chloride (Saline Flush) 10 ml FLUSH ASDIRECTED PRN PRN Reason: Keep Vein Open Sodium Chloride (Saline Flush) 2.5 ml FLUSH ASDIRECTED PRN PRN Reason: Keep Vein Open Venlafaxine HCl (Effexor Xr) 37.5 mg PO DAILY [facility] Last Admin: 03/22/19 09:58 Dose: 37.5 mg Discontinued Medications Azithromycin (Zithromax) 500 mg PO ONETIME ONE Stop: 03/22/19 10:43 Last Admin: 03/22/19 11:50 Dose: 500 mg Ceftriaxone Sodium/Dextrose 1 (gm/ Premix) 50 mls @ 100 mls/hr IV ONETIME ONE Stop: 03/21/19 17:13 Last Admin: 03/21/19 17:09 Dose: 100 mls/hr Sodium Chloride (Normal Saline) 1,000 mls @ 999 mls/hr IV STAT ONE Stop: 03/21/19 18:11 Last Infusion: 03/21/19 18:23 Dose: 999 mls/hr Sodium Chloride (Normal Saline) 1,000 mls @ 125 mls/hr IV STAT ONE Stop: 03/22/19 03:41 Last Admin: 03/21/19 19:54 Dose: 125 mls/hr Magnesium Sulfate 1 gm/ Sodium (Chloride) 52 mls @ 104 mls/hr IV ONETIME ONE Stop: 03/22/19 08:49 Last Admin: 03/22/19 08:44 Dose: 104 mls/hr Insulin Glargine (Lantus Solostar) 10 units SUBCUT BEDTIME MORALES Iopamidol (Isovue Multipack-370 (76%)) 80 ml IVPUSH ONETIME STA Stop: 03/21/19 18:23 Last Admin: 03/21/19 18:23 Dose: 80 ml Venlafaxine 25mg 1 each PO DAILY MORALES Last Admin: 03/22/19 09:52 Dose: Not Given Venlafaxine HCl (Effexor Xr) 37.5 mg PO DAILY MORALES - Exam General: Alert, Oriented HEENT: EOMI, Mucous Membr. Moist/[place] Neck: Supple Lungs: Normal Respiratory Effort, Other (some diminshment of BS in right lung simon ; however no crackles appreciated ) Cardiovascular: Regular Rate, Regular Rhythm GI/Abdominal Exam: Soft, Non-Tender, No Distention Back Exam: No: CVA Tenderness (L), CVA Tenderness (R) Extremities: No Pedal Edema Neurological: No New Focal Deficit Psy/Mental Status: Alert, Normal Affect, Normal Mood Sepsis Event Note - Evaluation Sepsis Screening Result: No Definite Risk - Focused Exam Vital Signs: Vital Signs Temp Pulse Resp BP Pulse Ox 03/22/19 12:10 98.7 F 116 H 16 104/62 96 03/22/19 09:01 98.6 F 117 H 16 117/70 93 L 03/22/19 04:00 98.4 F 77 16 128/65 96 Date Exam was Performed: 03/22/19 Time Exam was Performed: 13:39 - Problem List Review Problem List Initiated/Reviewed/Updated: Yes - My Orders Last 24 Hours: My Active Orders 03/22/19 09:15 Dronabinol [Marinol] 2.5 mg PO BID 03/22/19 11:30 Insulin Aspart [NovoLOG] See Protocol SUBCUT TIDAC - Plan Plan:: 38 y/o Female, come sin with c/o pre-syncope h/o HL, 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 on Azithromycin 500 mg today; 250 moving forward; oral solution as pt. is having some problems swallowing; Leukocytosis : improving but still elevated. Will continue to monitor today. Added Marinol as pt. has poor appetite. Discussed possible need to delay Chemotherapy appointment if symptoms persist. pt. understood.
[2019-03-22] MEDS: Insulin Aspart 100 Units/ML 3 ML Pen SUBCUT SCH ×2 (12:37→18:38)
[2019-03-22] MEDS ORDERED: Sodium Chloride 0.9% 1,000 ML IV ONE (19:57)
[2019-03-22] MEDS: Insulin Glargine,Human Rec. Analog 100 Units/ML 3 ML Pen SUBCUT SCH (20:38)
[2019-03-22] MEDS ORDERED: Insulin Glargine,Human Rec. Analog 100 Units/ML 3 ML Pen SUBCUT SCH (21:00)
[2019-03-23] MEDS: Sodium Chloride 0.9% 1,000 ML IV SCH ×2 (05:55→15:23)
[2019-03-23 06:52] LABS: BLOOD UREA NITROGEN,BUN 7 mg/dL (7.0-18.0); CARBON DIOXIDE,CO2 26.2 mmol/L (21.0-32.0); CHLORIDE,CL 102 mmol/L (98-107); GLUCOSE RANDOM 148 mg/dL (74-106); POTASSIUM,K 4.1 mmol/L (3.5-5.1); SODIUM,NA 136 mmol/L (136-145)
[2019-03-23] MEDS ORDERED: Azithromycin 250 MG Tab PO SCH (07:00)
[2019-03-23] MEDS: Insulin Aspart 100 Units/ML 3 ML Pen SUBCUT SCH ×2 (07:18→12:28)
[2019-03-23] MEDS: cefTRIAXone 1 GM in Sodium Chloride 0.9% 50 ML IV SCH (08:36)
[2019-03-23] MEDS: Dronabinol 2.5 MG Cap PO SCH (08:42)
[2019-03-23] MEDS: Venlafaxine 37.5 MG Cap.ER PO SCH (09:55)
[2019-03-23] MEDS ORDERED: Albuterol/Ipratropium 3.0-0.5 MG/3 ML Neb Soln NEB PRN (09:59)
--- NOTE | 2019-03-23 10:09 | PCM.PN ---
- General Info Date of Service: 03/23/19 Admission Dx/Problem (Free Text): Admission Diagnosis/Problem Admission Diagnosis/Problem UTI, Urinary tract infectious disease Subjective Update: Patient seen at bedside; was tachycardiac and hypoxic this AM started on o2. No complaints - Review of Systems General: Denies: Fever, Weakness, Fatigue HEENT: Denies: Dysphasia Pulmonary: Denies: Shortness of Breath, Pleuritic Chest Pain Cardiovascular: Denies: Chest Pain, Palpitations Gastrointestinal: Denies: Abdominal Pain, Constipation, Decreased Appetite Genitourinary: Denies: Dysuria, Frequency, Burning Musculoskeletal: Denies: Neck Pain, Shoulder Pain, Arm Pain Skin: Denies: Cyanosis, Jaundice, Mottled - Patient Data Vitals - Most Recent: Last Vital Signs Temp 36.9 C 03/23/19 07:25 Pulse 111 H 03/23/19 07:25 Resp 16 03/23/19 07:25 BP 131/82 03/23/19 07:25 Pulse Ox 95 03/23/19 07:25 Orthostatic Blood Pressure [ 101/60 Standing] Orthostatic Blood Pressure [ 99/56 Sitting] Orthostatic Blood Pressure [ 99/63 Supine] Weight - Most Recent: 58.468 kg I&O - Last 24 Hours: Intake & Output 03/22/19 03/23/19 03/23/19 22:59 06:59 14:59 Intake Total 1050 1233 Output Total 1200 Balance 1050 33 Lab Results Last 24 Hours: Laboratory Results - last 24 hr 03/22/19 03/22/19 03/22/19 Range/Units 11:40 17:59 20:36 WBC (4.0-11.0) K/uL RBC (4.30-5.90) M/uL Hgb (12.0-16.0) g/dL Hct (36.0-46.0) % MCV (80.0-98.0) fL MCH (27.0-32.0) pg MCHC (31.0-37.0) g/dL RDW Std Deviation (28.0-62.0) fl RDW Coeff of Leighton (11.0-15.0) % Plt Count (150-400) K/uL MPV (7.40-12.00) fL Neut % (Auto) (48.0-80.0) % Lymph % (Auto) (16.0-40.0) % [place] % (Auto) (0.0-15.0) % Eos % (Auto) (0.0-7.0) % Baso % (Auto) (0.0-1.5) % Neut # (Auto) (1.4-5.7) K/uL Lymph # (Auto) (0.6-2.4) K/uL [place] # (Auto) (0.0-0.8) K/uL Eos # (Auto) (0.0-0.7) K/uL Baso # (Auto) (0.0-0.1) K/uL Nucleated RBC % /100WBC Nucleated RBCs # K/uL Sodium (136-145) mmol/L Potassium (3.5-5.1) mmol/L Chloride (98-107) mmol/L Carbon Dioxide (21.0-32.0) mmol/L BUN (7.0-18.0) mg/dL Creatinine (0.6-1.0) mg/dL Est Cr Clr Drug Dosing mL/min Estimated GFR (MDRD) ml/min Glucose (74-106) mg/dL POC Glucose 258 H 159 H 260 H (60-110) mg/dL Calcium (8.5-10.1) mg/dL Total Bilirubin (0.2-1.0) mg/dL AST (15-37) IU/L ALT (14-63) IU/L Alkaline Phosphatase (46-116) U/L Total Protein (6.4-8.2) g/dL Albumin (3.4-5.0) g/dL Globulin (2.6-4.0) g/dL Albumin/Globulin Ratio (0.9-1.6) 03/23/19 03/23/19 03/23/19 Range/Units 05:50 05:50 07:17 WBC 15.25 H (4.0-11.0) K/uL RBC 3.68 L (4.30-5.90) M/uL Hgb 8.8 L (12.0-16.0) g/dL Hct 28.2 L (36.0-46.0) % MCV 76.6 L (80.0-98.0) fL MCH 23.9 L (27.0-32.0) pg MCHC 31.2 (31.0-37.0) g/dL RDW Std Deviation 44.5 (28.0-62.0) fl RDW Coeff of Leighton 16 H (11.0-15.0) % Plt Count 531 H (150-400) K/uL MPV 8.20 (7.40-12.00) fL Neut % (Auto) 86.0 H (48.0-80.0) % Lymph % (Auto) 6.8 L (16.0-40.0) % [place] % (Auto) 6.7 (0.0-15.0) % Eos % (Auto) 0.4 (0.0-7.0) % Baso % (Auto) 0.1 (0.0-1.5) % Neut # (Auto) 13.1 H (1.4-5.7) K/uL Lymph # (Auto) 1.0 (0.6-2.4) K/uL [place] # (Auto) 1.0 H (0.0-0.8) K/uL Eos # (Auto) 0.1 (0.0-0.7) K/uL Baso # (Auto) 0.0 (0.0-0.1) K/uL Nucleated RBC % 0.0 /100WBC Nucleated RBCs # 0 K/uL Sodium 136 (136-145) mmol/L Potassium 4.1 (3.5-5.1) mmol/L Chloride 102 (98-107) mmol/L Carbon Dioxide 26.2 (21.0-32.0) mmol/L BUN 7 (7.0-18.0) mg/dL Creatinine 0.6 (0.6-1.0) mg/dL Est Cr Clr Drug Dosing 119.64 mL/min Estimated GFR (MDRD) > 60.0 ml/min Glucose 148 H (74-106) mg/dL POC Glucose 133 H (60-110) mg/dL Calcium 8.1 L (8.5-10.1) mg/dL Total Bilirubin 0.3 (0.2-1.0) mg/dL AST 24 (15-37) IU/L ALT 20 (14-63) IU/L Alkaline Phosphatase 482 H (46-116) U/L Total Protein 6.8 (6.4-8.2) g/dL Albumin 1.5 L (3.4-5.0) g/dL Globulin 5.3 H (2.6-4.0) g/dL Albumin/Globulin Ratio 0.3 L (0.9-1.6) Julian Results Last 24 Hours: Microbiology 03/21/19 15:49 Urine Culture - Final Urine, Clean Catch MIXED AMADEO 1,000-10,000 CFU/ML 03/21/19 17:00 Aerobic Blood Culture - Preliminary Blood - Venous - Lab Draw NO GROWTH AFTER 1 DAY Anaerobic Blood Culture - Preliminary NO GROWTH AFTER 1 DAY 03/21/19 16:50 Aerobic Blood Culture - Preliminary Blood - Venous NO GROWTH AFTER 1 DAY Anaerobic Blood Culture - Preliminary NO GROWTH AFTER 1 DAY Med Orders - Current: Current Medications Albuterol/Ipratropium (Duoneb 3.0-0.5 Mg/3 Ml) 3 ml NEB Q4HRRT PRN PRN Reason: Shortness of Breath Azithromycin (Zithromax) 250 mg PO Q24H [facility] Last Admin: 03/23/19 07:15 Dose: 250 mg Dronabinol (Marinol) 2.5 mg PO BID [facility] Last Admin: 03/23/19 08:42 Dose: 2.5 mg Sodium Chloride (Normal Saline) 1,000 mls @ 125 mls/hr IV ASDIRECTED [facility] Last Admin: 03/23/19 05:55 Dose: 125 mls/hr Ceftriaxone Sodium 1 gm/ (Sodium Chloride) 50 mls @ 100 mls/hr IV Q12H [facility] Last Admin: 03/23/19 08:36 Dose: 100 mls/hr Insulin Aspart (Novolog) 0 unit SUBCUT TIDAC [facility]; Protocol Last Admin: 03/23/19 07:18 Dose: Not Given Insulin Glargine (Lantus Solostar) 10 units SUBCUT BEDTIME [facility] Last Admin: 03/22/19 20:38 Dose: 10 units Ondansetron HCl (Zofran) 4 mg IVPUSH Q4H PRN PRN Reason: Nausea/Vomiting Last Admin: 03/22/19 06:15 Dose: 4 mg Sodium Chloride (Saline Flush) 10 ml FLUSH ASDIRECTED PRN PRN Reason: Keep Vein Open Sodium Chloride (Saline Flush) 2.5 ml FLUSH ASDIRECTED PRN PRN Reason: Keep Vein Open Venlafaxine HCl (Effexor Xr) 37.5 mg PO DAILY [facility] Last Admin: 03/23/19 09:55 Dose: 37.5 mg Discontinued Medications Azithromycin (Zithromax) 500 mg PO ONETIME ONE Stop: 03/22/19 10:43 Last Admin: 03/22/19 11:50 Dose: 500 mg Ceftriaxone Sodium/Dextrose 1 (gm/ Premix) 50 mls @ 100 mls/hr IV ONETIME ONE Stop: 03/21/19 17:13 Last Admin: 03/21/19 17:09 Dose: 100 mls/hr Sodium Chloride (Normal Saline) 1,000 mls @ 999 mls/hr IV STAT ONE Stop: 03/21/19 18:11 Last Infusion: 03/21/19 18:23 Dose: 999 mls/hr Sodium Chloride (Normal Saline) 1,000 mls @ 125 mls/hr IV STAT ONE Stop: 03/22/19 03:41 Last Admin: 03/21/19 19:54 Dose: 125 mls/hr Magnesium Sulfate 1 gm/ Sodium (Chloride) 52 mls @ 104 mls/hr IV ONETIME ONE Stop: 03/22/19 08:49 Last Admin: 03/22/19 08:44 Dose: 104 mls/hr Sodium Chloride (Normal Saline) 1,000 mls @ 999 mls/hr IV STAT ONE Stop: 03/22/19 20:57 Last Admin: 03/22/19 20:31 Dose: 999 mls/hr Insulin Glargine (Lantus Solostar) 10 units SUBCUT BEDTIME [facility] Iopamidol (Isovue Multipack-370 (76%)) 80 ml IVPUSH ONETIME STA Stop: 03/21/19 18:23 Last Admin: 03/21/19 18:23 Dose: 80 ml Venlafaxine 25mg 1 each PO DAILY [facility] Last Admin: 03/22/19 09:52 Dose: Not Given Venlafaxine HCl (Effexor Xr) 37.5 mg PO DAILY [facility] - Exam Quality Assessment: Supplemental Oxygen General: Alert, Oriented Neck: Supple Lungs: Decreased Breath Sounds Cardiovascular: Regular Rhythm, Tachycardia GI/Abdominal Exam: Normal Bowel Sounds, Soft, Non-Tender Sepsis Event Note - Evaluation Sepsis Screening Result: Sepsis Risk - Focused Exam Vital Signs: Vital Signs Temp Pulse Resp BP Pulse Ox 03/23/19 07:25 36.9 C 111 H 16 131/82 95 03/23/19 04:41 116 H 18 95 03/23/19 04:00 36.7 C 121 H 18 110/78 88 L 03/23/19 00:44 116 H 18 90 L 03/23/19 00:00 36.7 C 111 H 14 111/65 89 L Date Exam was Performed: 03/23/19 Time Exam was Performed: 10:03 - Problem List & Annotations (1) UTI (urinary tract infection) SNOMED Code(s): 89628918 Code(s): N39.0 - URINARY TRACT INFECTION, SITE NOT SPECIFIED Status: Acute Current Visit: Yes (2) Sepsis SNOMED Code(s): 58289045 Code(s): A41.9 - SEPSIS, UNSPECIFIED ORGANISM Status: Acute Current Visit : Yes (3) Community acquired pneumonia SNOMED Code(s): 489494240 Code(s): J18.9 - PNEUMONIA, UNSPECIFIED ORGANISM Status: Acute Current Visit: Yes - Problem List Review Problem List Initiated/Reviewed/Updated: Yes - My Orders Last 24 Hours: My Active Orders 03/22/19 10:00 Venlafaxine [Effexor XR] 37.5 mg PO DAILY 03/23/19 09:59 RT Aerosol Therapy [RC] ASDIRECTED Albuterol/Ipratropium [DuoNeb 3.0-0.5 MG/3 ML] 3 ml NEB Q4HRRT PRN 03/23/19 10:02 Chest PE [Ang Chest] [CT] Routine - Plan Plan:: Cont IV antibiotics for CAP, WBC count improving Urine culture noted, mixed amadeo, blood cultures negative so far Tachy and hypoxic this AM Will obtain CTA chest to r/o PE Start breathing treatments Cont insulin for DM
[2019-03-23] MEDS ORDERED: Iopamidol 755 MG/ML 200 ML Multipack Bottle IVPUSH STA (12:28)
--- NOTE | 2019-03-23 12:54 | CT ---
INDICATION: Shortness of breath. History of Hodgkin`s lymphoma. TECHNIQUE: CT chest pulmonary angiogram acquired with 50 mL of Isovue 370 IV contrast. COMPARISON: CT chest 01/21/2019. CT neck 03/21/2019. FINDINGS: Cardiovascular structures: No evidence of pulmonary embolus. Thoracic aorta is normal in caliber. Heart size is within normal limits. Mediastinum and bridgette: Extensive mediastinal, hilar and supraclavicular lymphadenopathy is again demonstrated. Confluent right hilar mass/lymphadenopathy is again difficult to measure due to extensive disease but has increased in size, now measuring approximately 7.8 cm in greatest AP dimension, previously 6.8. High right paratracheal lymphadenopathy on image 22 is 3.6 cm and was 3.4 cm. Additional prevascular, subcarinal and hilar lymphadenopathy are similar or of similarly increased in size. Lungs: No pneumothorax. Narrowing of the bilateral upper, right middle and lower lobe bronchi due to extensive airspace disease/metastasis. Right upper lobe nodule on image 31 is 2.6 cm and was 1.8 cm. Multiple additional right lung nodules have enlarged and become confluent. There is near complete opacification of the right middle lobe. Dense, near complete opacification of the right lower lobe representing disease progression and atelectasis has progressed. A left lower lobe nodule on image 45 is 2.6 cm and was 2 cm. Multiple left upper lobe nodules are new and increased in size. Pleura and pericardium: Moderate to large right and small left pleural effusions have increased. Nodular soft tissue in the posterior medial right hemithorax concerning for pleural metastasis measures 5.2 cm on image 65. Small to moderate pericardial effusion is unchanged. Chest wall and axilla: Mild body wall edema. No pathologic axillary lymphadenopathy. Bones: New lucent and sclerotic lesion in the right aspect of the T10 vertebra, consistent with metastasis. No acute, pathologic fracture demonstrated. No additional CT evidence of osseous metastasis. Upper abdomen: Upper abdominal lymphadenopathy is better appreciated on the comparison chest CT a node on image 84 is 2.8 x 1.7 cm and was 3.1 x 2.2 cm. IMPRESSION: 1. Progression of disease as manifested by worsening mediastinal lymphadenopathy and pulmonary parenchymal disease. Near-complete opacification of the right middle and lower lobes represents a combination of metastasis and atelectasis. 2. Moderate to large right pleural effusion has increased. There is now evidence of pleural metastatic disease at the medial right lung base. Small left pleural effusion has increased. Small to moderate pericardial effusion is unchanged. 3. New osseous metastasis involving the T10 vertebra. No evidence of pathologic fracture. 4. No evidence of pulmonary embolus. Dictated by Colt Dye MD @ 03/23/2019 12:51:13 PM Dictated by: Colt Dye MD @ 03/23/2019 12:52:13 (Electronically Signed)
--- NOTE | 2019-03-23 13:52 | PCM.DCSUM1 ---
Discharge Summary - Hospital Course Free Text/Narrative:: Patient is a 38-year-old female with PMH of HL and DM type 1 presents to the ED With complaint of near syncope. She was recently diagnosed with Hodgkin's lymphoma in December and follows up at [place], she states she is scheduled to start chemotherapy next week. Patient states that over past couple of days she is having episodes per-syncope, her vision goes black and feels lightheaded. Patient has a mass on the right side of her neck and symptoms occur when she has the right arm above her head which shower or brushing her hair. Patient was found to have leucocytosis and UA showed UTI, xray showed possible PNA. Patient was admitted for further management. Patient developed hypoxia and tachycardia on day2. Was started on NC 2L, CTA chest was obtained which showed no PE, but showed worsening metastatic disease progression, near complete right lung opacification from mets/ atelectasis and moderate to large pleural effusion in left lung. Patient continued to need 2 L of oxygen, given both her lungs are compromised and continued need of oxygen, patient needed possible thoracentesis,. Given patient follows up with oncologist at [facility] with whom she was supposed to have an appt tomorrow, patient is being transferred to [place] for further care . - Discharge Data Discharge Disposition: Home, Self-Care 01 Condition: Stable - Referral to Home Health Primary Care Physician: Edgardo Son MD - Discharge Diagnosis/Problem(s) (1) UTI (urinary tract infection) SNOMED Code(s): 91693591 ICD Code: N39.0 - URINARY TRACT INFECTION, SITE NOT SPECIFIED Status: Acute Current Visit: Yes (2) Sepsis SNOMED Code(s): 70249240 ICD Code: A41.9 - SEPSIS, UNSPECIFIED ORGANISM Status: Acute Current Visit: Yes (3) Community acquired pneumonia SNOMED Code(s): 547832938 ICD Code: J18.9 - PNEUMONIA, UNSPECIFIED ORGANISM Status: Acute Current Visit: Yes - Patient Instructions Diet: Limited Carb Activity: As Tolerated Driving: Do Not Drive Showering/Bathing: May Shower Notify Provider of: Fever, Increased Pain, Swelling and Redness, Drainage, Nausea and/or Vomiting - Discharge Plan *PRESCRIPTION DRUG MONITORING PROGRAM REVIEWED*: No *COPY OF PRESCRIPTION DRUG MONITORING REPORT IN PATIENT DINO: No Home Medications: Home Meds Albuterol Sulfate [Albuterol Sulfate Hfa] 1 03/21/19 [History] Insulin Glarg,Human.Rec.Analog [Lantus] 10 mg BEDTIME 03/21/19 [History] Ondansetron [Zofran] 4 mg PO Q6H 03/21/19 [History] Venlafaxine [Effexor] 25 mg PO 03/21/19 [History] Forms: ED Department Discharge Referrals: Edgardo Son MD [Primary Care Provider] - - Patient Data Vitals - Most Recent: Last Vital Signs Temp 37.0 C 03/23/19 12:00 Pulse 95 03/23/19 12:00 Resp 20 03/23/19 12:00 BP 109/62 03/23/19 12:00 Pulse Ox 95 03/23/19 12:31 Orthostatic Blood Pressure [ 101/60 Standing] Orthostatic Blood Pressure [ 99/56 Sitting] Orthostatic Blood Pressure [ 99/63 Supine] Weight - Most Recent: 58.468 kg I&O - Last 24 hours: Intake & Output 03/22/19 03/23/19 03/23/19 22:59 06:59 14:59 Intake Total 1050 1233 50 Output Total 1200 Balance 1050 33 50 Lab Results - Last 24 hrs: Laboratory Results - last 24 hr 03/22/19 03/22/19 03/23/19 Range/Units 17:59 20:36 05:50 WBC 15.25 H (4.0-11.0) K/uL RBC 3.68 L (4.30-5.90) M/uL Hgb 8.8 L (12.0-16.0) g/dL Hct 28.2 L (36.0-46.0) % MCV 76.6 L (80.0-98.0) fL MCH 23.9 L (27.0-32.0) pg MCHC 31.2 (31.0-37.0) g/dL RDW Std Deviation 44.5 (28.0-62.0) fl RDW Coeff of Leighton 16 H (11.0-15.0) % Plt Count 531 H (150-400) K/uL MPV 8.20 (7.40-12.00) fL Neut % (Auto) 86.0 H (48.0-80.0) % Lymph % (Auto) 6.8 L (16.0-40.0) % [place] % (Auto) 6.7 (0.0-15.0) % Eos % (Auto) 0.4 (0.0-7.0) % Baso % (Auto) 0.1 (0.0-1.5) % Neut # (Auto) 13.1 H (1.4-5.7) K/uL Lymph # (Auto) 1.0 (0.6-2.4) K/uL [place] # (Auto) 1.0 H (0.0-0.8) K/uL Eos # (Auto) 0.1 (0.0-0.7) K/uL Baso # (Auto) 0.0 (0.0-0.1) K/uL Nucleated RBC % 0.0 /100WBC Nucleated RBCs # 0 K/uL Sodium (136-145) mmol/L Potassium (3.5-5.1) mmol/L Chloride (98-107) mmol/L Carbon Dioxide (21.0-32.0) mmol/L BUN (7.0-18.0) mg/dL Creatinine (0.6-1.0) mg/dL Est Cr Clr Drug Dosing mL/min Estimated GFR (MDRD) ml/min Glucose (74-106) mg/dL POC Glucose 159 H 260 H (60-110) mg/dL Calcium (8.5-10.1) mg/dL Total Bilirubin (0.2-1.0) mg/dL AST (15-37) IU/L ALT (14-63) IU/L Alkaline Phosphatase (46-116) U/L Total Protein (6.4-8.2) g/dL Albumin (3.4-5.0) g/dL Globulin (2.6-4.0) g/dL Albumin/Globulin Ratio (0.9-1.6) 03/23/19 03/23/19 03/23/19 Range/Units 05:50 07:17 12:26 WBC (4.0-11.0) K/uL RBC (4.30-5.90) M/uL Hgb (12.0-16.0) g/dL Hct (36.0-46.0) % MCV (80.0-98.0) fL MCH (27.0-32.0) pg MCHC (31.0-37.0) g/dL RDW Std Deviation (28.0-62.0) fl RDW Coeff of Leighton (11.0-15.0) % Plt Count (150-400) K/uL MPV (7.40-12.00) fL Neut % (Auto) (48.0-80.0) % Lymph % (Auto) (16.0-40.0) % [place] % (Auto) (0.0-15.0) % Eos % (Auto) (0.0-7.0) % Baso % (Auto) (0.0-1.5) % Neut # (Auto) (1.4-5.7) K/uL Lymph # (Auto) (0.6-2.4) K/uL [place] # (Auto) (0.0-0.8) K/uL Eos # (Auto) (0.0-0.7) K/uL Baso # (Auto) (0.0-0.1) K/uL Nucleated RBC % /100WBC Nucleated RBCs # K/uL Sodium 136 (136-145) mmol/L Potassium 4.1 (3.5-5.1) mmol/L Chloride 102 (98-107) mmol/L Carbon Dioxide 26.2 (21.0-32.0) mmol/L BUN 7 (7.0-18.0) mg/dL Creatinine 0.6 (0.6-1.0) mg/dL Est Cr Clr Drug Dosing 119.64 mL/min Estimated GFR (MDRD) > 60.0 ml/min Glucose 148 H (74-106) mg/dL POC Glucose 133 H 242 H (60-110) mg/dL Calcium 8.1 L (8.5-10.1) mg/dL Total Bilirubin 0.3 (0.2-1.0) mg/dL AST 24 (15-37) IU/L ALT 20 (14-63) IU/L Alkaline Phosphatase 482 H (46-116) U/L Total Protein 6.8 (6.4-8.2) g/dL Albumin 1.5 L (3.4-5.0) g/dL Globulin 5.3 H (2.6-4.0) g/dL Albumin/Globulin Ratio 0.3 L (0.9-1.6) LULÚ Results - Last 24 hrs: Microbiology 03/21/19 15:49 Urine Culture - Final Urine, Clean Catch MIXED RENEE 1,000-10,000 CFU/ML 03/21/19 17:00 Aerobic Blood Culture - Preliminary Blood - Venous - Lab Draw NO GROWTH AFTER 1 DAY Anaerobic Blood Culture - Preliminary NO GROWTH AFTER 1 DAY 03/21/19 16:50 Aerobic Blood Culture - Preliminary Blood - Venous NO GROWTH AFTER 1 DAY Anaerobic Blood Culture - Preliminary NO GROWTH AFTER 1 DAY Med Orders - Current: Current Medications Albuterol/Ipratropium (Duoneb 3.0-0.5 Mg/3 Ml) 3 ml NEB Q4HRRT PRN PRN Reason: Shortness of Breath Last Admin: 03/23/19 10:39 Dose: 3 ml Azithromycin (Zithromax) 250 mg PO Q24H [facility] Last Admin: 03/23/19 07:15 Dose: 250 mg Dronabinol (Marinol) 2.5 mg PO BID [facility] Last Admin: 03/23/19 08:42 Dose: 2.5 mg Sodium Chloride (Normal Saline) 1,000 mls @ 125 mls/hr IV ASDIRECTED [facility] Last Admin: 03/23/19 05:55 Dose: 125 mls/hr Ceftriaxone Sodium 1 gm/ (Sodium Chloride) 50 mls @ 100 mls/hr IV Q12H [facility] Last Admin: 03/23/19 08:36 Dose: 100 mls/hr Insulin Aspart (Novolog) 0 unit SUBCUT TIDAC [facility]; Protocol Last Admin: 03/23/19 12:28 Dose: 2 units Insulin Glargine (Lantus Solostar) 10 units SUBCUT BEDTIME [facility] Last Admin: 03/22/19 20:38 Dose: 10 units Ondansetron HCl (Zofran) 4 mg IVPUSH Q4H PRN PRN Reason: Nausea/Vomiting Last Admin: 03/22/19 06:15 Dose: 4 mg Sodium Chloride (Saline Flush) 10 ml FLUSH ASDIRECTED PRN PRN Reason: Keep Vein Open Sodium Chloride (Saline Flush) 2.5 ml FLUSH ASDIRECTED PRN PRN Reason: Keep Vein Open Venlafaxine HCl (Effexor Xr) 37.5 mg PO DAILY [facility] Last Admin: 03/23/19 09:55 Dose: 37.5 mg Discontinued Medications Azithromycin (Zithromax) 500 mg PO ONETIME ONE Stop: 03/22/19 10:43 Last Admin: 03/22/19 11:50 Dose: 500 mg Ceftriaxone Sodium/Dextrose 1 (gm/ Premix) 50 mls @ 100 mls/hr IV ONETIME ONE Stop: 03/21/19 17:13 Last Admin: 03/21/19 17:09 Dose: 100 mls/hr Sodium Chloride (Normal Saline) 1,000 mls @ 999 mls/hr IV STAT ONE Stop: 03/21/19 18:11 Last Infusion: 03/21/19 18:23 Dose: 999 mls/hr Sodium Chloride (Normal Saline) 1,000 mls @ 125 mls/hr IV STAT ONE Stop: 03/22/19 03:41 Last Admin: 03/21/19 19:54 Dose: 125 mls/hr Magnesium Sulfate 1 gm/ Sodium (Chloride) 52 mls @ 104 mls/hr IV ONETIME ONE Stop: 03/22/19 08:49 Last Admin: 03/22/19 08:44 Dose: 104 mls/hr Sodium Chloride (Normal Saline) 1,000 mls @ 999 mls/hr IV STAT ONE Stop: 03/22/19 20:57 Last Admin: 03/22/19 20:31 Dose: 999 mls/hr Insulin Glargine (Lantus Solostar) 10 units SUBCUT BEDTIME [facility] Iopamidol (Isovue Multipack-370 (76%)) 80 ml IVPUSH ONETIME STA Stop: 03/21/19 18:23 Last Admin: 03/21/19 18:23 Dose: 80 ml Iopamidol (Isovue Multipack-370 (76%)) 100 ml IVPUSH ONETIME STA Stop: 03/23/19 12:29 Last Admin: 03/23/19 12:29 Dose: 50 ml Venlafaxine 25mg 1 each PO DAILY [facility] Last Admin: 03/22/19 09:52 Dose: Not Given Venlafaxine HCl (Effexor Xr) 37.5 mg PO DAILY [facility]
[2019-03-23] MEDS ORDERED: LORazepam 1 MG Tab PO ONE (16:20)
== END 2019-03-23 16:25 ==
LOC: MW.ED 15:32 → MW.MS 19:44
PROVIDERS: ADMIT Student in an Organized Health Care Education/Training Program; ATTEND Student in an Organized Health Care Education/Training Program
DX: R55 Syncope and collapse (principal); E10.9 Type 1 diabetes mellitus without complications; E78.5 Hyperlipidemia, unspecified; C81.90 Hodgkin lymphoma, unspecified, unspecified site; N39.0 Urinary tract infection, site not specified; A41.9 Sepsis, unspecified organism; J18.9 Pneumonia, unspecified organism; R09.02 Hypoxemia; R00.0 Tachycardia, unspecified; C78.01 Secondary malignant neoplasm of right lung; J90 Pleural effusion, not elsewhere classified
CPT/HCPCS: 36415; 70492; 71045; 71275; 80048; 80053; 81001; 81025; 82962; 83605; 83735; 84100; 84484; 85025; 87040; 87086; 93005; 94640; 96361; 96365; 99285; A9270; J0696; J1815; J2405; J3475; J7030; J7050; Q0167; Q9967; J7620-GY

== ENCOUNTER 2019-04-17 11:50 | Observation (INO) | payer OTHER ==
[2019-04-17] MEDS ORDERED: Sodium Chloride 0.9% 2.5 ML Syringe FLUSH PRN (12:18)
[2019-04-17] MEDS ORDERED: Sodium Chloride 0.9% 1,000 ML IV ONE ×2 (12:18→14:05)
[2019-04-17] MEDS ORDERED: Ondansetron 4 MG/2 ML SDV IVPUSH ONE (12:18)
[2019-04-17] MEDS ORDERED: Sodium Chloride 0.9% 10 ML Syringe FLUSH PRN (12:18)
--- NOTE | 2019-04-17 12:21 | EDM.PDOC ---
ED HPI GENERAL MEDICAL PROBLEM - General Chief Complaint: General Stated Complaint: FLU SYMPTOMS Time Seen by Provider: 04/17/19 12:17 Source of Information: Reports: Patient History Limitations: Reports: No Limitations - History of Present Illness INITIAL COMMENTS - FREE TEXT/NARRATIVE: HISTORY AND PHYSICAL: History of present illness: Patient is a 38-year-old female with history of Hodgkin's lymphoma and type 1 diabetes presents to the ED for concern of possible flu. Patient is currently undergoing chemotherapy, her last treatment was 6 days ago. She states that since 6:00 this morning she has had 4 episodes of vomiting and has not been able to keep any fluids down. She called her oncologist who advised that she come to the ED for further evaluation. Patient states that she does get a queasy stomach prior to vomiting but otherwise denies abdominal pain. She denies diarrhea. States that she had a temperature on her thermometer of 101F at home and did not take any Tylenol or ibuprofen and is afebrile here. She states that last week after her chemo she did have an episode of syncope. She had recently been admitted here for syncopal episodes and sepsis. She states that for the past 2 days she has had a cough. Review of systems: As per history of present illness and below otherwise all systems reviewed and negative. Past medical history: As per history of present illness and as reviewed below otherwise noncontributory. Surgical history: As per history of present illness and as reviewed below otherwise noncontributory. Social history: No reported history of drug or alcohol abuse. Family history: As per history of present illness and as reviewed below otherwise noncontributory. Physical exam: General: Patient sitting comfortably in no acute distress and nontoxic appearing HEENT: Atraumatic, normocephalic, pupils reactive, negative for conjunctival pallor or scleral icterus, mucous membranes moist, throat clear, neck supple, nontender, trachea midline. No meningeal signs. Lungs: Clear to auscultation, breath sounds equal bilaterally, chest nontender. Heart: S1S2, regular, negative for clicks, rubs, or overt murmur. Abdomen: Soft, nondistended, nontender. Negative for masses or hepatosplenomegaly. Negative for costovertebral tenderness. No rigidity, rebound , guarding. Pelvis: Stable nontender. Genitourinary: Deferred. Rectal: Deferred. Extremities: Atraumatic, negative for cords or calf pain. Neurovascular unremarkable. Neuro: Awake, alert, oriented. Cranial nerves II through XII unremarkable. Cerebellum unremarkable. Motor and sensory unremarkable throughout. Exam nonfocal. Notes: Diagnostics: CBC, CMP, UA, CXR, lactate, blood culture x 2 Therapeutics: 2L NS IV 1g Rocephin IV Prescriptions: Impression: Dehydration, UTI, pneumonia Plan: Discussed with Dr. Reed, patient will be admitted for IV fluids and antibiotics. Definitive disposition and diagnosis as appropriate pending reevaluation and review of above. - Related Data Allergies Allergy/AdvReac Type Severity Reaction Status Date / Time prednisone Allergy Anaphylactic Verified 04/17/19 12:07 Shock Home Meds: Home Meds Albuterol Sulfate [Albuterol Sulfate Hfa] 1 03/21/19 [History] Insulin Glarg,Human.Rec.Analog [Lantus] 10 mg BEDTIME 03/21/19 [History] Venlafaxine [Effexor] 25 mg PO 03/21/19 [History] Azithromycin [Zithromax] 250 mg PO Q24H tablet 03/23/19 [Rx] Dronabinol [Marinol] 2.5 mg PO BID cap 03/23/19 [Rx] cefTRIAXone [Rocephin] 1 gm IV Q12H adv 03/23/19 [Rx] Past Medical History HEENT History: Reports: Allergic Rhinitis Other HEENT History: summer allergies 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 Endocrine/Metabolic History: Reports: Diabetes, Type II Immunologic History: Reports: Immunosuppression Oncologic (Cancer) History: Reports: Lymphoma - Past Surgical History HEENT Surgical History: Reports: None Social & Family History - Family History Family Medical History: Noncontributory HEENT: Reports: Allergic Rhinitis Cardiac: Reports: [place] Other Respiratory Family Hisory: emphysema Other GI Family History: ulcers Dermatologic: Reports: None Oncologic: Reports: Breast, Colon, Hodgkin's Lymphoma, Non-Hodgkin's Lymphoma - Tobacco Use Smoking Status *Q: Never Smoker - Caffeine Use Caffeine Use: Reports: None - Recreational Drug Use Recreational Drug Use: No ED ROS GENERAL - Review of Systems Review Of Systems: Comprehensive ROS is negative, except as noted in HPI. ED EXAM, GENERAL - Physical Exam Exam: See Below (See dictation) Course - Vital Signs Last Recorded V/S: Last Vital Signs Temp 98.7 F 04/17/19 12:05 Pulse 111 H 04/17/19 13:49 Resp 18 04/17/19 13:49 BP 106/75 04/17/19 13:49 Pulse Ox 98 04/17/19 13:49 - Orders/Labs/Meds Orders: Active Orders 24 hr Category Date Time Status EKG Documentation Completion [RC] STAT Care 04/17/19 12:18 Active CULTURE BLOOD [BC] Stat Lab 04/17/19 13:46 Ordered CULTURE BLOOD [BC] Stat Lab 04/17/19 13:46 Ordered CULTURE URINE [RM] Stat Lab 04/17/19 12:30 Received LACTATE WITH REFLEX [BG] Stat Lab 04/17/19 13:46 Ordered Sodium Chloride 0.9% [Normal Saline] 1,000 ml Med 04/17/19 14:05 Active IV STAT Sodium Chloride 0.9% [Saline Flush] Med 04/17/19 12:18 Active 10 ml FLUSH ASDIRECTED PRN Sodium Chloride 0.9% [Saline Flush] Med 04/17/19 12:18 Active 2.5 ml FLUSH ASDIRECTED PRN Blood Culture x2 Reflex Set [OM.PC] Stat Oth 04/17/19 13:46 Ordered Saline Lock Insert [OM.PC] Stat Oth 04/17/19 12:18 Ordered Medication Orders Sodium Chloride (Normal Saline) 1,000 mls @ 999 mls/hr IV STAT ONE Stop: 04/17/19 15:05 Sodium Chloride (Saline Flush) 10 ml FLUSH ASDIRECTED PRN PRN Reason: Keep Vein Open Last Admin: 04/17/19 12:44 Dose: 10 ml Sodium Chloride (Saline Flush) 2.5 ml FLUSH ASDIRECTED PRN PRN Reason: Keep Vein Open Last Admin: 04/17/19 12:44 Dose: 2.5 ml Labs: Laboratory Tests 04/17/19 04/17/19 04/17/19 Range/Units 12:30 12:30 12:30 WBC 12.82 H (4.0-11.0) K/uL RBC 4.49 (4.30-5.90) M/uL Hgb 10.9 L (12.0-16.0) g/dL Hct 33.2 L (36.0-46.0) % MCV 73.9 L (80.0-98.0) fL MCH 24.3 L (27.0-32.0) pg MCHC 32.8 (31.0-37.0) g/dL RDW Std Deviation 44.0 (28.0-62.0) fl RDW Coeff of [place] 17 H (11.0-15.0) % Plt Count 244 (150-400) K/uL MPV 9.00 (7.40-12.00) fL Neut % (Auto) 79.0 (48.0-80.0) % Lymph % (Auto) 18.3 (16.0-40.0) % [place] % (Auto) 2.0 (0.0-15.0) % Eos % (Auto) 0.4 (0.0-7.0) % Baso % (Auto) 0.3 (0.0-1.5) % Neut # (Auto) 10.1 H (1.4-5.7) K/uL Lymph # (Auto) 2.3 (0.6-2.4) K/uL [place] # (Auto) 0.3 (0.0-0.8) K/uL Eos # (Auto) 0.1 (0.0-0.7) K/uL Baso # (Auto) 0.0 (0.0-0.1) K/uL Nucleated RBC % 0.0 /100WBC Nucleated RBCs # 0 K/uL Sodium 136 (136-145) mmol/L Potassium 3.9 (3.5-5.1) mmol/L Chloride 99 (98-107) mmol/L Carbon Dioxide 28.9 (21.0-32.0) mmol/L BUN 27 H (7.0-18.0) mg/dL Creatinine 0.5 L (0.6-1.0) mg/dL Est Cr Clr Drug Dosing 133.66 mL/min Estimated GFR (MDRD) > 60.0 ml/min Glucose 199 H (74-106) mg/dL Calcium 9.5 (8.5-10.1) mg/dL Total Bilirubin 0.2 (0.2-1.0) mg/dL AST 19 (15-37) IU/L ALT 32 (14-63) IU/L Alkaline Phosphatase 255 H (46-116) U/L Total Protein 7.9 (6.4-8.2) g/dL Albumin 3.3 L (3.4-5.0) g/dL Globulin 4.6 H (2.6-4.0) g/dL Albumin/Globulin Ratio 0.7 L (0.9-1.6) Lipase 96 (73-393) U/L Urine Color YELLOW Urine Appearance HAZY Urine pH 6.0 (5.0-8.0) Ur Specific [place] 1.025 (1.001-1.035) Urine Protein 30 H (NEGATIVE) mg/dL Urine Glucose (UA) NEGATIVE (NEGATIVE) mg/dL Urine Ketones NEGATIVE (NEGATIVE) mg/dL Urine Occult Blood NEGATIVE (NEGATIVE) Urine Nitrite NEGATIVE (NEGATIVE) Urine Bilirubin NEGATIVE (NEGATIVE) Urine Urobilinogen 0.2 (<2.0) EU/dL Ur Leukocyte Esterase TRACE H (NEGATIVE) Urine RBC 0-3 (0-2/HPF) Urine WBC 3-7 (0-5/HPF) Ur Epithelial Cells FEW (NONE-FEW) Urine Bacteria 2+ H (NEGATIVE) Urine Mucus LIGHT (NONE-MOD) Meds: Medications Generic Name Dose Route Start Last Admin Trade Name Freq PRN Reason Stop Dose Admin Sodium Chloride 1,000 mls @ 999 mls/hr 04/17/19 14:05 Normal Saline IV 04/17/19 15:05 STAT ONE Sodium Chloride 10 ml 04/17/19 12:18 04/17/19 12:44 Saline Flush FLUSH 10 ml ASDIRECTED PRN Administration Keep Vein Open Sodium Chloride 2.5 ml 04/17/19 12:18 04/17/19 12:44 Saline Flush FLUSH 2.5 ml ASDIRECTED PRN Administration Keep Vein Open Discontinued Medications Generic Name Dose Route Start Last Admin Trade Name Freq PRN Reason Stop Dose Admin Sodium Chloride 1,000 mls @ 999 mls/hr 04/17/19 12:18 04/17/19 12:42 Normal Saline IV 04/17/19 13:18 999 mls/hr STAT ONE Administration Ondansetron HCl 4 mg 04/17/19 12:18 04/17/19 12:42 Zofran IVPUSH 04/17/19 12:19 4 mg ONETIME ONE Administration Departure - Departure Time of Disposition: 14:11 Disposition: Refer to Observation Condition: Good Clinical Impression: Dehydration, UTI (urinary tract infection), Pneumonia - Discharge Information Referrals: Edgardo Son MD [Primary Care Provider] - Forms: ED Department Discharge Sepsis Event Note - Evaluation Sepsis Screening Result: No Definite Risk - Focused Exam Vital Signs: Vital Signs Temp Pulse Resp BP Pulse Ox 04/17/19 13:49 111 H 18 106/75 98 04/17/19 12:05 98.7 F 126 H 16 97/68 96 Date Exam was Performed: 04/17/19 Time Exam was Performed: 14:10 - My Orders Last 24 Hours: My Active Orders 04/17/19 12:18 EKG Documentation Completion [RC] STAT Sodium Chloride 0.9% [Saline Flush] 10 ml FLUSH ASDIRECTED PRN Sodium Chloride 0.9% [Saline Flush] 2.5 ml FLUSH ASDIRECTED PRN Saline Lock Insert [OM.PC] Stat 04/17/19 12:30 CULTURE URINE [RM] Stat 04/17/19 13:46 CULTURE BLOOD [BC] Stat CULTURE BLOOD [BC] Stat LACTATE WITH REFLEX [BG] Stat Blood Culture x2 Reflex Set [OM.PC] Stat 04/17/19 14:05 Sodium Chloride 0.9% [Normal Saline] 1,000 ml IV STAT - Assessment/Plan Last 24 Hours: My Active Orders 04/17/19 12:18 EKG Documentation Completion [RC] STAT Sodium Chloride 0.9% [Saline Flush] 10 ml FLUSH ASDIRECTED PRN Sodium Chloride 0.9% [Saline Flush] 2.5 ml FLUSH ASDIRECTED PRN Saline Lock Insert [OM.PC] Stat 04/17/19 12:30 CULTURE URINE [RM] Stat 04/17/19 13:46 CULTURE BLOOD [BC] Stat CULTURE BLOOD [BC] Stat LACTATE WITH REFLEX [BG] Stat Blood Culture x2 Reflex Set [OM.PC] Stat 04/17/19 14:05 Sodium Chloride 0.9% [Normal Saline] 1,000 ml IV STAT
--- NOTE | 2019-04-17 13:28 | CR ---
Chest: Portable view of the chest was obtained. Comparison: Prior chest CT of 03/23/19 and chest x-ray of 03/21/19. Considerable parenchymal density is noted within the right lung. Findings not as severe as on prior study. Nodule is noted within the left mid to lower lung which is stable measuring about 1.7 cm. Left lung is otherwise clear. Heart size and mediastinum are stable. Slight widening of the right paratracheal soft tissues is noted compatible with lymphadenopathy. Right sided infusion port is again noted. Impression: 1. Considerable parenchymal density within the right chest. Findings not as severe as on previous exam. Uncertain if findings represent persistence of previous parenchymal density or represent new area of pneumonia. 2. Stable nodule or mass within the left lung. 3. Other findings as noted above. Diagnostic code #9 Study was dictated in [place] Standard Time
[2019-04-17 13:35] LABS: BLOOD UREA NITROGEN,BUN 27 mg/dL (7.0-18.0); CARBON DIOXIDE,CO2 28.9 mmol/L (21.0-32.0); CHLORIDE,CL 99 mmol/L (98-107); GLUCOSE RANDOM 199 mg/dL (74-106); LIPASE 96 U/L (73-393); POTASSIUM,K 3.9 mmol/L (3.5-5.1); SODIUM,NA 136 mmol/L (136-145)
[2019-04-17] MEDS ORDERED: Acetaminophen 325 MG Tab PO PRN (15:58)
[2019-04-17] MEDS ORDERED: Promethazine 25 MG/ML SDV IM PRN (15:58)
[2019-04-17] MEDS ORDERED: Prochlorperazine 10 MG/2 ML SDV IVPUSH PRN (16:06)
[2019-04-17] MEDS: Sodium Chloride 0.9% 1,000 ML IV SCH ×2 (16:06→23:44)
--- NOTE | 2019-04-17 16:10 | PCM.HP.2 ---
H&P History of Present Illness - General Date of Service: 04/17/19 Admit Problem/Dx: Admission Diagnosis/Problem Admission Diagnosis/Problem Dehydration Source of Information: Patient History Limitations: Reports: No Limitations - History of Present Illness Initial Comments - Free Text/Narative: This 38 year old female with pmh of Hodgkin lymphoma and DM type 1 presented to the ED with concerns of N/V that started suddenly overnight. She reports she is unable to keep much down and her stomach just feels queasy. She reports she ate out at [employer] last night, chicken strips. She otherwise has been having a very good week after receiving chemotherapy on Sunday. She said she has not had any nausea or issues after this round, which is her second round of chemotherapy. She reports mild cough, no fevers, or chills. No sore throat or chest pain. No dyspnea. She reports nausea with mild abdominal cramping, not overt pain. No diarrhea, she reports constipation. She has been receiving Decadron as outpatient for 4 days after chemo, last Decadron was Sunday. In the ED slight leukocytosis noted at 12,800 Hgb stable. No electrolyte abnormalities notes. UA showed + 1 bacteria and small leukocyte esterase, but she is asymptomatic. CXR revealed parechymal densities on the R, which have improved from previous exams. She reports these are stable and are the cancer, per her Oncologist Dr Paz. She will be admitted for nausea and vomiting. PCP, Dr Son or Dr Lenka Dalton - Related Data Allergies/Adverse Reactions: Allergies Allergy/AdvReac Type Severity Reaction Status Date / Time prednisone Allergy Anaphylactic Verified 04/17/19 15:29 Shock Home Medications: Home Meds Insulin Glarg,Human.Rec.Analog [Lantus] 10 units BEDTIME 03/21/19 [History] Venlafaxine [Effexor] 37.5 mg PO DAILY 03/21/19 [History] Ondansetron [Zofran] 4 mg PO Q8H PRN 04/17/19 [History] Scopolamine [Transderm-Scop] 1 patch TD Q3D 04/17/19 [History] allopurinoL [Zyloprim] 300 mg PO DAILY 04/17/19 [History] Past Medical History HEENT History: Reports: Allergic Rhinitis Other HEENT History: summer allergies Cardiovascular History: Reports: None. 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 ASSOCIATE History: Reports: Other OB/BYN History: 1 Endocrine/Metabolic History: Reports: Diabetes, Type II Immunologic History: Reports: Immunosuppression Oncologic (Cancer) History: Reports: Hodgkin's Lymphoma - Past Surgical History HEENT Surgical History: Reports: None Social & Family History - Family History Family Medical History: Noncontributory HEENT: Reports: Allergic Rhinitis Cardiac: Reports: HI Other Respiratory Family Hisory: emphysema Other GI Family History: ulcers Dermatologic: Reports: None Oncologic: Reports: Breast, Colon, Hodgkin's Lymphoma, Non-Hodgkin's Lymphoma - Tobacco Use Smoking Status *Q: Never Smoker - Caffeine Use Caffeine Use: Reports: None - Recreational Drug Use Recreational Drug Use: No H&P Review of Systems - Review of Systems: Review Of Systems: See Below General: Denies: Fever, Chills, Malaise, Fatigue HEENT: Reports: No Symptoms. Denies: Headaches, Sinus Congestion, Sore Throat Pulmonary: Reports: Cough (dry). Denies: Shortness of Breath, Wheezing, Pleuritic Chest Pain Cardiovascular: Reports: No Symptoms. Denies: Chest Pain, Syncope Gastrointestinal: Reports: Abdominal Pain (more cramping, no overt pain), Constipation, Decreased Appetite, Nausea, Vomiting. Denies: Black Stool, Bloody Stool, Diarrhea Genitourinary: Reports: No Symptoms. Denies: Dysuria, Frequency, Burning, Pain Musculoskeletal: Reports: No Symptoms Skin: Reports: No Symptoms Psychiatric: Reports: No Symptoms Neurological: Reports: No Symptoms Hematologic/Lymphatic: Reports: No Symptoms Immunologic: Reports: No Symptoms Exam - Exam Exam: See Below - Vital Signs Vital Signs: Last Vital Signs Temp 96.8 F 04/17/19 15:20 Pulse 94 04/17/19 15:20 Resp 18 04/17/19 15:20 BP 117/68 04/17/19 15:20 Pulse Ox 97 04/17/19 15:20 Weight: 54.431 kg - Exam Quality Assessment: No: Supplemental Oxygen General: Alert, Oriented, Cooperative HEENT: Conjunctiva Clear, Mucosa Moist & [place], Posterior Pharynx Clear Neck: Supple, Trachea Midline Lungs: Clear to Auscultation, Normal Respiratory Effort Cardiovascular: Regular Rate, Regular Rhythm GI/Abdominal Exam: Normal Bowel Sounds, Soft, Non-Tender Extremities: Normal Inspection, Normal Range of Motion, Non-Tender, No Pedal Edema Neuro Extensive - Mental Status: Alert, Oriented x3 Neuro Extensive - Motor, Sensory, Reflexes: CN II-XII Intact Psychiatric: Alert, Normal Affect, Normal Mood - Patient Data Lab Results Last 24 hrs: Laboratory Results - last 24 hr 04/17/19 04/17/19 04/17/19 Range/Units 12:30 12:30 12:30 WBC 12.82 H (4.0-11.0) K/uL RBC 4.49 (4.30-5.90) M/uL Hgb 10.9 L (12.0-16.0) g/dL Hct 33.2 L (36.0-46.0) % MCV 73.9 L (80.0-98.0) fL MCH 24.3 L (27.0-32.0) pg MCHC 32.8 (31.0-37.0) g/dL RDW Std Deviation 44.0 (28.0-62.0) fl RDW Coeff of [place] 17 H (11.0-15.0) % Plt Count 244 (150-400) K/uL MPV 9.00 (7.40-12.00) fL Neut % (Auto) 79.0 (48.0-80.0) % Lymph % (Auto) 18.3 (16.0-40.0) % Tate % (Auto) 2.0 (0.0-15.0) % Eos % (Auto) 0.4 (0.0-7.0) % Baso % (Auto) 0.3 (0.0-1.5) % Neut # (Auto) 10.1 H (1.4-5.7) K/uL Lymph # (Auto) 2.3 (0.6-2.4) K/uL Tate # (Auto) 0.3 (0.0-0.8) K/uL Eos # (Auto) 0.1 (0.0-0.7) K/uL Baso # (Auto) 0.0 (0.0-0.1) K/uL Nucleated RBC % 0.0 /100WBC Nucleated RBCs # 0 K/uL Lactate (0.20-2.00) mmol/L Sodium 136 (136-145) mmol/L Potassium 3.9 (3.5-5.1) mmol/L Chloride 99 (98-107) mmol/L Carbon Dioxide 28.9 (21.0-32.0) mmol/L BUN 27 H (7.0-18.0) mg/dL Creatinine 0.5 L (0.6-1.0) mg/dL Est Cr Clr Drug Dosing 133.66 mL/min Estimated GFR (MDRD) > 60.0 ml/min Glucose 199 H (74-106) mg/dL Calcium 9.5 (8.5-10.1) mg/dL Total Bilirubin 0.2 (0.2-1.0) mg/dL AST 19 (15-37) IU/L ALT 32 (14-63) IU/L Alkaline Phosphatase 255 H (46-116) U/L Total Protein 7.9 (6.4-8.2) g/dL Albumin 3.3 L (3.4-5.0) g/dL Globulin 4.6 H (2.6-4.0) g/dL Albumin/Globulin Ratio 0.7 L (0.9-1.6) Lipase 96 (73-393) U/L Urine Color YELLOW Urine Appearance HAZY Urine pH 6.0 (5.0-8.0) Ur Specific [place] 1.025 (1.001-1.035) Urine Protein 30 H (NEGATIVE) mg/dL Urine Glucose (UA) NEGATIVE (NEGATIVE) mg/dL Urine Ketones NEGATIVE (NEGATIVE) mg/dL Urine Occult Blood NEGATIVE (NEGATIVE) Urine Nitrite NEGATIVE (NEGATIVE) Urine Bilirubin NEGATIVE (NEGATIVE) Urine Urobilinogen 0.2 (<2.0) EU/dL Ur Leukocyte Esterase TRACE H (NEGATIVE) Urine RBC 0-3 (0-2/HPF) Urine WBC 3-7 (0-5/HPF) Ur Epithelial Cells FEW (NONE-FEW) Urine Bacteria 2+ H (NEGATIVE) Urine Mucus LIGHT (NONE-MOD) 04/17/19 Range/Units 14:12 WBC (4.0-11.0) K/uL RBC (4.30-5.90) M/uL Hgb (12.0-16.0) g/dL Hct (36.0-46.0) % MCV (80.0-98.0) fL MCH (27.0-32.0) pg MCHC (31.0-37.0) g/dL RDW Std Deviation (28.0-62.0) fl RDW Coeff of [place] (11.0-15.0) % Plt Count (150-400) K/uL MPV (7.40-12.00) fL Neut % (Auto) (48.0-80.0) % Lymph % (Auto) (16.0-40.0) % Tate % (Auto) (0.0-15.0) % Eos % (Auto) (0.0-7.0) % Baso % (Auto) (0.0-1.5) % Neut # (Auto) (1.4-5.7) K/uL Lymph # (Auto) (0.6-2.4) K/uL Tate # (Auto) (0.0-0.8) K/uL Eos # (Auto) (0.0-0.7) K/uL Baso # (Auto) (0.0-0.1) K/uL Nucleated RBC % /100WBC Nucleated RBCs # K/uL Lactate 0.7 (0.20-2.00) mmol/L Sodium (136-145) mmol/L Potassium (3.5-5.1) mmol/L Chloride (98-107) mmol/L Carbon Dioxide (21.0-32.0) mmol/L BUN (7.0-18.0) mg/dL Creatinine (0.6-1.0) mg/dL Est Cr Clr Drug Dosing mL/min Estimated GFR (MDRD) ml/min Glucose (74-106) mg/dL Calcium (8.5-10.1) mg/dL Total Bilirubin (0.2-1.0) mg/dL AST (15-37) IU/L ALT (14-63) IU/L Alkaline Phosphatase (46-116) U/L Total Protein (6.4-8.2) g/dL Albumin (3.4-5.0) g/dL Globulin (2.6-4.0) g/dL Albumin/Globulin Ratio (0.9-1.6) Lipase (73-393) U/L Urine Color Urine Appearance Urine pH (5.0-8.0) Ur Specific [place] (1.001-1.035) Urine Protein (NEGATIVE) mg/dL Urine Glucose (UA) (NEGATIVE) mg/dL Urine Ketones (NEGATIVE) mg/dL Urine Occult Blood (NEGATIVE) Urine Nitrite (NEGATIVE) Urine Bilirubin (NEGATIVE) Urine Urobilinogen (<2.0) EU/dL Ur Leukocyte Esterase (NEGATIVE) Urine RBC (0-2/HPF) Urine WBC (0-5/HPF) Ur Epithelial Cells (NONE-FEW) Urine Bacteria (NEGATIVE) Urine Mucus (NONE-MOD) Result Diagrams: 04/17/19 12:30 04/17/19 12:30 Julian Results Last 24 hrs: Microbiology 04/17/19 12:30 Influenza Type A Antigen Screen - Final Nasopharyngeal Swab NEGATIVE INFLUENZA A VIRUS AG REFERENCE RANGE: NEGATIVE Influenza Type B Antigen Screen - Final NEGATIVE INFLUENZA B VIRUS AG REFERENCE RANGE: NEGATIVE Sepsis Event Note - Evaluation Sepsis Screening Result: No Definite Risk - Focused Exam Vital Signs: Vital Signs Temp Pulse Resp BP Pulse Ox 04/17/19 15:20 96.8 F 94 18 117/68 97 04/17/19 13:49 111 H 18 106/75 98 04/17/19 12:05 98.7 F 126 H 16 97/68 96 Date Exam was Performed: 04/17/19 Time Exam was Performed: 16:46 *Q Meaningful Use (ADM) - VTE Risk Assess *Q Each Risk Factor Represents 1 Point: None Total Score 1 Point Risk Factors: 0 Each Risk Factor Represents 2 Points: Malignancy (present or previous) Total Score 2 Point Risk Factors: 2 Each Risk Factor Represents 3 Points: None Total Score 3 Point Risk Factors: 0 Each Risk Factor Represents 5 Points: None Total Score 5 Point Risk Factors: 0 Venous Thromboembolism Risk Factor Score *Q: 2 - Problem List (1) Nausea & vomiting SNOMED Code(s): 91507560 ICD Code: R11.2 - NAUSEA WITH VOMITING, UNSPECIFIED Status: Acute Current Visit: Yes (2) Dehydration SNOMED Code(s): 10630385 ICD Code: E86.0 - DEHYDRATION Status: Acute Current Visit: Yes (3) DM type 1 (diabetes mellitus, type 1) SNOMED Code(s): 22887661 ICD Code: E10.9 - TYPE 1 DIABETES MELLITUS WITHOUT COMPLICATIONS Status: Chronic Current Visit: Yes Qualifiers: Diabetes mellitus complication status: without complication Qualified Code( s): E10.9 - Type 1 diabetes mellitus without complications (4) Hodgkin lymphoma SNOMED Code(s): 446300637 ICD Code: C81.90 - HODGKIN LYMPHOMA, UNSPECIFIED, UNSPECIFIED SITE Status: Chronic Current Visit: No Problem List Initiated/Reviewed/Updated: Yes Orders Last 24hrs: Active Orders 24 hr Category Date Time Status Admission Status [Patient Status] [ADT] Stat ADT 04/17/19 14:11 Active Intake and Output [RC] QSHIFT Care 04/17/19 15:58 Ordered May Shower [RC] ASDIRECTED Care 04/17/19 15:58 Ordered Oxygen Therapy [RC] PRN Care 04/17/19 15:58 Ordered Up ad Niesha [RC] ASDIRECTED Care 04/17/19 15:58 Ordered VTE/DVT Education [RC] PER UNIT ROUTINE Care 04/17/19 15:58 Ordered Vital Signs [RC] Q4H Care 04/17/19 15:58 Ordered Clear Liquid Diet [DIET] Diet 04/17/19 Dinner Ordered BASIC METABOLIC PANEL,BMP [CHEM] AM Lab 04/18/19 05:11 Ordered CBC WITH AUTO DIFF [HEME] AM Lab 04/18/19 05:11 Ordered CULTURE BLOOD [BC] Stat Lab 04/17/19 13:58 Received CULTURE BLOOD [BC] Stat Lab 04/17/19 14:12 Received CULTURE URINE [RM] Stat Lab 04/17/19 12:30 Received MAGNESIUM [CHEM] AM Lab 04/18/19 05:11 Ordered MAGNESIUM [CHEM] Routine Lab 04/17/19 15:57 Ordered PHOSPHORUS [CHEM] AM Lab 04/18/19 05:11 Ordered Acetaminophen [Tylenol] Med 04/17/19 15:58 Ordered 650 mg PO Q4H PRN Insulin Aspart [NovoLOG] Med 04/17/19 17:00 Ordered See Protocol SUBCUT TIDAC Ondansetron [Zofran] Med 04/17/19 15:58 Ordered 4 mg IVPUSH Q4H PRN Prochlorperazine [Compazine] Med 04/17/19 16:06 Ordered 10 mg IVPUSH Q6H PRN Sodium Chloride 0.9% @ 150 MLS/HR (1,000ml) Med 04/17/19 16:00 Ordered Sodium Chloride 0.9% [Normal Saline] 1,000 ml IV ASDIRECTED Sodium Chloride 0.9% [Saline Flush] Med 04/17/19 12:18 Active 10 ml FLUSH ASDIRECTED PRN Sodium Chloride 0.9% [Saline Flush] Med 04/17/19 12:18 Active 2.5 ml FLUSH ASDIRECTED PRN Blood Culture x2 Reflex Set [OM.PC] Stat Ot 04/17/19 13:46 Ordered Saline Lock Insert [OM.PC] Stat Oth 04/17/19 12:18 Ordered Resuscitation Status Routine Resus Stat 04/17/19 15:58 Ordered Medication Orders Acetaminophen (Tylenol) 650 mg PO Q4H PRN PRN Reason: Pain (mild 1-3) Sodium Chloride (Normal Saline) 1,000 mls @ 150 mls/hr IV ASDIRECTED MORALES Last Admin: 04/17/19 16:06 Dose: 150 mls/hr Insulin Aspart (Novolog) 0 unit SUBCUT TIDAC MORALES; Protocol Ondansetron HCl (Zofran) 4 mg IVPUSH Q4H PRN PRN Reason: Nausea Prochlorperazine Edisylate (Compazine) 10 mg IVPUSH Q6H PRN PRN Reason: Nausea/Vomiting Sodium Chloride (Saline Flush) 10 ml FLUSH ASDIRECTED PRN PRN Reason: Keep Vein Open Last Admin: 04/17/19 12:44 Dose: 10 ml Sodium Chloride (Saline Flush) 2.5 ml FLUSH ASDIRECTED PRN PRN Reason: Keep Vein Open Last Admin: 04/17/19 12:44 Dose: 2.5 ml Assessment/Plan Comment:: This 38 year old female admitted with nausea and vomiting and dehydration 1. Nausea/vomiting and Dehydration: May be due to chemotherapy but also she ate out last night, consider food poisoning or gastroenteritis. Soft diet. NS 150 ml /hr overnight. No diarrhea. Will treat with Zofran and Compazine PRN IV. I spoke with Dr Paz, Oncology. Recommended watching electrolytes, felt this could be chemo and agreed with food poisoning. 2. DM Type 1: Novolog SSI, do not want to be aggressive with treatment per Oncology. But Dr Paz wants her to establish with PCP to have them manage DM during chemotherapy treatment. 3. Hodgkin"s Lymphoma: receiving Decadron as outpatient, likely cause for luekocytosis. Infection not suspected, but will monitor UC. Given Rocephin in the ED. Continue home medications. VTE prophylaxis: Heparin Dispo: 1-2 days. - Mortality Measure Prognosis:: Good
[2019-04-17] MEDS ORDERED: Bisacodyl 10 MG Supp RECTAL PRN (16:29)
[2019-04-17] MEDS ORDERED: Magnesium Sulfate/Water 2 GM in Premix Bag 1 BAG IV ONE (16:44)
[2019-04-17] MEDS ORDERED: Acetaminophen/HYDROcodone 325-5 MG Tab PO PRN (16:45)
[2019-04-17] MEDS: Ondansetron 4 MG/2 ML SDV IVPUSH PRN ×2 (16:47→22:40)
[2019-04-17] MEDS: Insulin Aspart 100 Units/ML 3 ML Pen SUBCUT SCH (17:02)
[2019-04-17] MEDS ORDERED: Venlafaxine 37.5 MG Tab PO SCH (21:00)
[2019-04-18] MEDS: Ondansetron 4 MG/2 ML SDV IVPUSH PRN (04:10)
[2019-04-18 06:02] LABS: BLOOD UREA NITROGEN,BUN 11 mg/dL (7.0-18.0); CARBON DIOXIDE,CO2 28.9 mmol/L (21.0-32.0); CHLORIDE,CL 103 mmol/L (98-107); GLUCOSE RANDOM 122 mg/dL (74-106); POTASSIUM,K 3.7 mmol/L (3.5-5.1); SODIUM,NA 140 mmol/L (136-145)
[2019-04-18] MEDS: Insulin Aspart 100 Units/ML 3 ML Pen SUBCUT SCH ×3 (06:35→16:30)
[2019-04-18] MEDS: Sodium Chloride 0.9% 1,000 ML IV SCH ×2 (06:38→13:35)
[2019-04-18] MEDS ORDERED: Allopurinol 300 MG Tab PO SCH (09:00)
--- NOTE | 2019-04-18 09:11 | PCM.PN ---
- General Info Date of Service: 04/18/19 Admission Dx/Problem (Free Text): Admission Diagnosis/Problem Admission Diagnosis/Problem Dehydration Subjective Update: Still nauseated this morning. Having some abdominal pain as well. No stool yet. No chest pain or SOB. Functional Status: Reports: Ambulating, Urinating. Denies: Tolerating Diet - Review of Systems General: Reports: Fatigue, Malaise Pulmonary: Reports: No Symptoms. Denies: Shortness of Breath Cardiovascular: Reports: No Symptoms. Denies: Chest Pain Gastrointestinal: Reports: Abdominal Pain, Constipation, Nausea, Vomiting. Denies: Hematochezia, Melena Genitourinary: Reports: No Symptoms. Denies: Dysuria, Frequency Musculoskeletal: Reports: No Symptoms Skin: Reports: No Symptoms Neurological: Reports: No Symptoms Psychiatric: Reports: No Symptoms - Patient Data Vitals - Most Recent: Last Vital Signs Temp 97.2 F 04/18/19 03:00 Pulse 96 04/18/19 03:00 Resp 15 04/18/19 03:00 BP 127/80 04/18/19 03:00 Pulse Ox 97 04/18/19 03:00 Weight - Most Recent: 54.431 kg I&O - Last 24 Hours: Intake & Output 04/17/19 04/18/19 04/18/19 22:59 06:59 14:59 Intake Total 1884 Output Total 1400 Balance 484 Lab Results Last 24 Hours: Laboratory Results - last 24 hr 04/17/19 04/17/19 04/17/19 Range/Units 12:30 12:30 12:30 WBC 12.82 H (4.0-11.0) K/uL RBC 4.49 (4.30-5.90) M/uL Hgb 10.9 L (12.0-16.0) g/dL Hct 33.2 L (36.0-46.0) % MCV 73.9 L (80.0-98.0) fL MCH 24.3 L (27.0-32.0) pg MCHC 32.8 (31.0-37.0) g/dL RDW Std Deviation 44.0 (28.0-62.0) fl RDW Coeff of [place] 17 H (11.0-15.0) % Plt Count 244 (150-400) K/uL MPV 9.00 (7.40-12.00) fL Neut % (Auto) 79.0 (48.0-80.0) % Lymph % (Auto) 18.3 (16.0-40.0) % [place] % (Auto) 2.0 (0.0-15.0) % Eos % (Auto) 0.4 (0.0-7.0) % Baso % (Auto) 0.3 (0.0-1.5) % Neut # (Auto) 10.1 H (1.4-5.7) K/uL Lymph # (Auto) 2.3 (0.6-2.4) K/uL [place] # (Auto) 0.3 (0.0-0.8) K/uL Eos # (Auto) 0.1 (0.0-0.7) K/uL Baso # (Auto) 0.0 (0.0-0.1) K/uL Add Manual Diff Neutrophils % (Manual) (48.0-80.0) % Band Neutrophils % % Lymphocytes % (Manual) (16.0-40.0) % Monocytes % (Manual) (0.0-15.0) % Eosinophils % (Manual) (0.0-7.0) % Nucleated RBC % 0.0 /100WBC Absolute Seg Neuts (1.4-5.7) Band Neutrophils # Lymphocytes # (Manual) (0.6-2.4) Monocytes # (Manual) (0.0-0.8) Eosinophils # (Manual) (0.0-0.7) Nucleated RBCs # 0 K/uL Lactate (0.20-2.00) mmol/L Sodium 136 (136-145) mmol/L Potassium 3.9 (3.5-5.1) mmol/L Chloride 99 (98-107) mmol/L Carbon Dioxide 28.9 (21.0-32.0) mmol/L BUN 27 H (7.0-18.0) mg/dL Creatinine 0.5 L (0.6-1.0) mg/dL Est Cr Clr Drug Dosing 133.66 mL/min Estimated GFR (MDRD) > 60.0 ml/min Glucose 199 H (74-106) mg/dL POC Glucose (60-110) mg/dL Calcium 9.5 (8.5-10.1) mg/dL Phosphorus (2.6-4.7) mg/dL Magnesium (1.8-2.4) mg/dL Total Bilirubin 0.2 (0.2-1.0) mg/dL AST 19 (15-37) IU/L ALT 32 (14-63) IU/L Alkaline Phosphatase 255 H (46-116) U/L Total Protein 7.9 (6.4-8.2) g/dL Albumin 3.3 L (3.4-5.0) g/dL Globulin 4.6 H (2.6-4.0) g/dL Albumin/Globulin Ratio 0.7 L (0.9-1.6) Lipase 96 (73-393) U/L Urine Color YELLOW Urine Appearance HAZY Urine pH 6.0 (5.0-8.0) Ur Specific [place] 1.025 (1.001-1.035) Urine Protein 30 H (NEGATIVE) mg/dL Urine Glucose (UA) NEGATIVE (NEGATIVE) mg/dL Urine Ketones NEGATIVE (NEGATIVE) mg/dL Urine Occult Blood NEGATIVE (NEGATIVE) Urine Nitrite NEGATIVE (NEGATIVE) Urine Bilirubin NEGATIVE (NEGATIVE) Urine Urobilinogen 0.2 (<2.0) EU/dL Ur Leukocyte Esterase TRACE H (NEGATIVE) Urine RBC 0-3 (0-2/HPF) Urine WBC 3-7 (0-5/HPF) Ur Epithelial Cells FEW (NONE-FEW) Urine Bacteria 2+ H (NEGATIVE) Urine Mucus LIGHT (NONE-MOD) 04/17/19 04/17/19 04/17/19 Range/Units 14:12 14:19 16:55 WBC (4.0-11.0) K/uL RBC (4.30-5.90) M/uL Hgb (12.0-16.0) g/dL Hct (36.0-46.0) % MCV (80.0-98.0) fL MCH (27.0-32.0) pg MCHC (31.0-37.0) g/dL RDW Std Deviation (28.0-62.0) fl RDW Coeff of [place] (11.0-15.0) % Plt Count (150-400) K/uL MPV (7.40-12.00) fL Neut % (Auto) (48.0-80.0) % Lymph % (Auto) (16.0-40.0) % [place] % (Auto) (0.0-15.0) % Eos % (Auto) (0.0-7.0) % Baso % (Auto) (0.0-1.5) % Neut # (Auto) (1.4-5.7) K/uL Lymph # (Auto) (0.6-2.4) K/uL [place] # (Auto) (0.0-0.8) K/uL Eos # (Auto) (0.0-0.7) K/uL Baso # (Auto) (0.0-0.1) K/uL Add Manual Diff Neutrophils % (Manual) (48.0-80.0) % Band Neutrophils % % Lymphocytes % (Manual) (16.0-40.0) % Monocytes % (Manual) (0.0-15.0) % Eosinophils % (Manual) (0.0-7.0) % Nucleated RBC % /100WBC Absolute Seg Neuts (1.4-5.7) Band Neutrophils # Lymphocytes # (Manual) (0.6-2.4) Monocytes # (Manual) (0.0-0.8) Eosinophils # (Manual) (0.0-0.7) Nucleated RBCs # K/uL Lactate 0.7 (0.20-2.00) mmol/L Sodium (136-145) mmol/L Potassium (3.5-5.1) mmol/L Chloride (98-107) mmol/L Carbon Dioxide (21.0-32.0) mmol/L BUN (7.0-18.0) mg/dL Creatinine (0.6-1.0) mg/dL Est Cr Clr Drug Dosing mL/min Estimated GFR (MDRD) ml/min Glucose (74-106) mg/dL POC Glucose 137 H (60-110) mg/dL Calcium (8.5-10.1) mg/dL Phosphorus (2.6-4.7) mg/dL Magnesium 1.6 L (1.8-2.4) mg/dL Total Bilirubin (0.2-1.0) mg/dL AST (15-37) IU/L ALT (14-63) IU/L Alkaline Phosphatase (46-116) U/L Total Protein (6.4-8.2) g/dL Albumin (3.4-5.0) g/dL Globulin (2.6-4.0) g/dL Albumin/Globulin Ratio (0.9-1.6) Lipase (73-393) U/L Urine Color Urine Appearance Urine pH (5.0-8.0) Ur Specific [place] (1.001-1.035) Urine Protein (NEGATIVE) mg/dL Urine Glucose (UA) (NEGATIVE) mg/dL Urine Ketones (NEGATIVE) mg/dL Urine Occult Blood (NEGATIVE) Urine Nitrite (NEGATIVE) Urine Bilirubin (NEGATIVE) Urine Urobilinogen (<2.0) EU/dL Ur Leukocyte Esterase (NEGATIVE) Urine RBC (0-2/HPF) Urine WBC (0-5/HPF) Ur Epithelial Cells (NONE-FEW) Urine Bacteria (NEGATIVE) Urine Mucus (NONE-MOD) 04/18/19 04/18/19 Range/Units 05:08 05:08 WBC 13.51 H (4.0-11.0) K/uL RBC 4.10 L (4.30-5.90) M/uL Hgb 9.8 L (12.0-16.0) g/dL Hct 30.5 L (36.0-46.0) % MCV 74.4 L (80.0-98.0) fL MCH 23.9 L (27.0-32.0) pg MCHC 32.1 (31.0-37.0) g/dL RDW Std Deviation 43.7 (28.0-62.0) fl RDW Coeff of [place] 17 H (11.0-15.0) % Plt Count 238 (150-400) K/uL MPV 8.90 (7.40-12.00) fL Neut % (Auto) (48.0-80.0) % Lymph % (Auto) (16.0-40.0) % [place] % (Auto) (0.0-15.0) % Eos % (Auto) (0.0-7.0) % Baso % (Auto) (0.0-1.5) % Neut # (Auto) (1.4-5.7) K/uL Lymph # (Auto) (0.6-2.4) K/uL [place] # (Auto) (0.0-0.8) K/uL Eos # (Auto) (0.0-0.7) K/uL Baso # (Auto) (0.0-0.1) K/uL Add Manual Diff YES Neutrophils % (Manual) 55 (48.0-80.0) % Band Neutrophils % 24 % Lymphocytes % (Manual) 16 (16.0-40.0) % Monocytes % (Manual) 4 (0.0-15.0) % Eosinophils % (Manual) 1 (0.0-7.0) % Nucleated RBC % 0.0 /100WBC Absolute Seg Neuts 7.4 H (1.4-5.7) Band Neutrophils # 3.2 Lymphocytes # (Manual) 2.2 (0.6-2.4) Monocytes # (Manual) 0.5 (0.0-0.8) Eosinophils # (Manual) 0.1 (0.0-0.7) Nucleated RBCs # 0 K/uL Lactate (0.20-2.00) mmol/L Sodium 140 (136-145) mmol/L Potassium 3.7 (3.5-5.1) mmol/L Chloride 103 (98-107) mmol/L Carbon Dioxide 28.9 (21.0-32.0) mmol/L BUN 11 (7.0-18.0) mg/dL Creatinine 0.4 L (0.6-1.0) mg/dL Est Cr Clr Drug Dosing 167.07 mL/min Estimated GFR (MDRD) > 60.0 ml/min Glucose 122 H (74-106) mg/dL POC Glucose (60-110) mg/dL Calcium 8.5 (8.5-10.1) mg/dL Phosphorus 3.2 (2.6-4.7) mg/dL Magnesium 2.0 (1.8-2.4) mg/dL Total Bilirubin (0.2-1.0) mg/dL AST (15-37) IU/L ALT (14-63) IU/L Alkaline Phosphatase (46-116) U/L Total Protein (6.4-8.2) g/dL Albumin (3.4-5.0) g/dL Globulin (2.6-4.0) g/dL Albumin/Globulin Ratio (0.9-1.6) Lipase (73-393) U/L Urine Color Urine Appearance Urine pH (5.0-8.0) Ur Specific [place] (1.001-1.035) Urine Protein (NEGATIVE) mg/dL Urine Glucose (UA) (NEGATIVE) mg/dL Urine Ketones (NEGATIVE) mg/dL Urine Occult Blood (NEGATIVE) Urine Nitrite (NEGATIVE) Urine Bilirubin (NEGATIVE) Urine Urobilinogen (<2.0) EU/dL Ur Leukocyte Esterase (NEGATIVE) Urine RBC (0-2/HPF) Urine WBC (0-5/HPF) Ur Epithelial Cells (NONE-FEW) Urine Bacteria (NEGATIVE) Urine Mucus (NONE-MOD) Julian Results Last 24 Hours: Microbiology 04/17/19 12:30 Influenza Type A Antigen Screen - Final Nasopharyngeal Swab NEGATIVE INFLUENZA A VIRUS AG REFERENCE RANGE: NEGATIVE Influenza Type B Antigen Screen - Final NEGATIVE INFLUENZA B VIRUS AG REFERENCE RANGE: NEGATIVE Med Orders - Current: Current Medications Acetaminophen (Tylenol) 650 mg PO Q4H PRN PRN Reason: Pain (mild 1-3) Hydrocodone Bitart/Acetaminophen ([place] 325-5 Mg) 1 tab PO Q4H PRN PRN Reason: Pain Allopurinol (Zyloprim) 300 mg PO DAILY [facility] Last Admin: 04/18/19 08:54 Dose: Not Given Bisacodyl (Dulcolax) 10 mg RECTAL DAILY PRN PRN Reason: Constipation Sodium Chloride (Normal Saline) 1,000 mls @ 150 mls/hr IV ASDIRECTED [facility] Last Admin: 04/18/19 06:38 Dose: 150 mls/hr Ceftriaxone Sodium/Dextrose 1 (gm/ Premix) 50 mls @ 100 mls/hr IV Q24H [facility] Insulin Aspart (Novolog) [facility] Last Admin: 04/18/19 06:35 Dose: Not Given Ondansetron HCl (Zofran) 4 mg IVPUSH Q4H PRN PRN Reason: Nausea Last Admin: 04/18/19 04:10 Dose: 4 mg Prochlorperazine Edisylate (Compazine) 10 mg IVPUSH Q6H PRN PRN Reason: Nausea/Vomiting Last Admin: 04/18/19 08:48 Dose: 10 mg Sodium Chloride (Saline Flush) 10 ml FLUSH ASDIRECTED PRN PRN Reason: Keep Vein Open Last Admin: 04/17/19 12:44 Dose: 10 ml Sodium Chloride (Saline Flush) 2.5 ml FLUSH ASDIRECTED PRN PRN Reason: Keep Vein Open Last Admin: 04/17/19 12:44 Dose: 2.5 ml Venlafaxine HCl (Effexor) 37.5 mg PO BEDTIME [facility] Last Admin: 04/17/19 20:23 Dose: 37.5 mg Discontinued Medications Sodium Chloride (Normal Saline) 1,000 mls @ 999 mls/hr IV STAT ONE Stop: 04/17/19 13:18 Last Admin: 04/17/19 12:42 Dose: 999 mls/hr Sodium Chloride (Normal Saline) 1,000 mls @ 999 mls/hr IV STAT ONE Stop: 04/17/19 15:05 Last Admin: 04/17/19 14:27 Dose: 999 mls/hr Magnesium Sulfate 2 gm/ Premix 50 mls @ 50 mls/hr IV ONETIME ONE Stop: 04/17/19 17:43 Last Admin: 04/17/19 17:16 Dose: 50 mls/hr Ondansetron HCl (Zofran) 4 mg IVPUSH ONETIME ONE Stop: 04/17/19 12:19 Last Admin: 04/17/19 12:42 Dose: 4 mg Promethazine HCl (Phenergan) 25 mg IM Q6H PRN PRN Reason: Nausea - Exam General: Alert, Oriented, Cooperative Lungs: Clear to Auscultation, Normal Respiratory Effort Cardiovascular: Regular Rate, Regular Rhythm GI/Abdominal Exam: Normal Bowel Sounds, Soft, Tender (LLQ) Extremities: Normal Inspection, Normal Range of Motion, Non-Tender Neurological: No New Focal Deficit Psy/Mental Status: Alert, Normal Affect, Normal Mood Sepsis Event Note - Evaluation Sepsis Screening Result: No Definite Risk - Focused Exam Vital Signs: Vital Signs Temp Pulse Resp BP Pulse Ox 04/18/19 03:00 97.2 F 96 15 127/80 97 04/17/19 23:00 96.7 F 100 16 134/79 97 Date Exam was Performed: 04/18/19 Time Exam was Performed: 10:37 - Problem List & Annotations (1) Nausea & vomiting SNOMED Code(s): 86858343 Code(s): R11.2 - NAUSEA WITH VOMITING, UNSPECIFIED Status: Acute Current Visit: Yes (2) Dehydration SNOMED Code(s): 44800106 Code(s): E86.0 - DEHYDRATION Status: Acute Current Visit: Yes (3) DM type 1 (diabetes mellitus, type 1) SNOMED Code(s): 41993296 Code(s): E10.9 - TYPE 1 DIABETES MELLITUS WITHOUT COMPLICATIONS Status: Chronic Current Visit: Yes Qualifiers: Diabetes mellitus complication status: without complication Qualified Code( s): E10.9 - Type 1 diabetes mellitus without complications (4) Hodgkin lymphoma SNOMED Code(s): 895795037 Code(s): C81.90 - HODGKIN LYMPHOMA, UNSPECIFIED, UNSPECIFIED SITE Status: Chronic Current Visit: No - Problem List Review Problem List Initiated/Reviewed/Updated: Yes - My Orders Last 24 Hours: My Active Orders 04/17/19 15:58 Intake and Output [RC] Q12H May Shower [RC] ASDIRECTED Oxygen Therapy [RC] PRN Up ad Niesha [RC] ASDIRECTED VTE/DVT Education [RC] PER UNIT ROUTINE Vital Signs [RC] Q4H Acetaminophen [Tylenol] 650 mg PO Q4H PRN Ondansetron [Zofran] 4 mg IVPUSH Q4H PRN Resuscitation Status Routine 04/17/19 16:00 Sodium Chloride 0.9% [Normal Saline] 1,000 ml IV ASDIRECTED 04/17/19 16:06 Prochlorperazine [Compazine] 10 mg IVPUSH Q6H PRN 04/17/19 16:29 bisacodyL [Dulcolax] 10 mg RECTAL DAILY PRN 04/17/19 16:45 Acetaminophen/HYDROcodone [[place] 325-5 MG] 1 tab PO Q4H PRN 04/17/19 16:58 Blood Glucose Check, Bedside [RC] TIDAC 04/17/19 17:00 Insulin Aspart [NovoLOG] See Protocol SUBCUT TIDAC 04/17/19 21:00 Venlafaxine [Effexor] 37.5 mg PO BEDTIME 04/17/19 Dinner Soft Diet [DIET] 04/18/19 08:45 Abdomen Pelvis wo Cont [CT] Urgent 04/18/19 09:00 allopurinoL [Zyloprim] 300 mg PO DAILY 04/18/19 13:00 cefTRIAXone [Rocephin in Dextrose,Iso-Osm 1 GM/50 ML] 1 gm Premix Bag 1 bag IV Q24H - Plan Plan:: This 38 year old female admitted with nausea and vomiting and dehydration 1. Nausea/vomiting and Dehydration:Having abdominal pain this morning, will obtain CT abd/pelvis. Continue Soft diet. NS 150 ml/hr. Give Dulcolax for constipation. Zofran not helping, try Compazine PRN IV.Monitor electrolytes, stable today. 2. DM Type 1: Novolog SSI, do not want to be aggressive with treatment per Oncology. 3. UTI: UC pending, will continue Rocephin for now. 4. Hodgkin's Lymphoma: receiving Decadron as outpatient, likely cause for luekocytosis. Infection not suspected, but will monitor UC. Given Rocephin in the ED. Continue home medications. VTE prophylaxis: Heparin Dispo: 1-2 days.
[2019-04-18] MEDS ORDERED: Heparin Sodium 5,000 Units/ML Vial SUBCUT SCH (10:45)
--- NOTE | 2019-04-18 12:48 | CT ---
CT abdomen and pelvis Technique: Multiple axial sections were obtained from above the dome of the diaphragm inferiorly to the pubic symphysis. Intravenous and oral contrast not utilized which diminishes details. Comparison: Previous CT abdomen and pelvis study of 01/23/19. Findings: Numerous nodular densities are seen within the visualized right lung compatible with probable metastatic disease. Prominent soft tissue density is noted off the right inferior hilar region. This appears fairly similar to prior abdominal CT. Prior CT abdomen study showed a large mass within the left base which is not seen on current study. Pericardial effusion is seen. Noncontrast appearance of the liver shows no discrete abnormality. Midline gallbladder is noted which contains small amount of high density material presumably due to small gallstones or dense sludge. Adrenal glands show no nodule. Pancreas shows no discrete abnormality. Kidneys show no abnormal calcifications or hydronephrosis. Aorta shows no aneurysm. No retroperitoneal adenopathy or mesenteric abnormalities are seen. Mild increased stool is noted throughout the colon. Appendix is not visualized with certainty. Minimal free fluid is seen within the pelvis believed to be physiologic. No inflammatory change is seen within the abdomen or pelvis. Bone window settings were reviewed which shows a bony abnormality being seen within T9. This is not seen on prior abdominal CT exam but appears stable from previous CT chest exam performed on 03/23/19. Impression: 1. Bone lesion within T9 which is stable from most recent study but an interval change from CT abdomen and pelvis exam of 01/23/19. This is suspicious for an early metastatic bone lesion. 2. Multiple stable nodules within the visualized right lung compatible with metastatic disease. Large confluent mass is noted off the inferior right hilar region which is stable. 3. Prior CT abdomen and pelvis study shows a large nodule within the left base which is not seen on current exam. 4. Stable pericardial effusion. 5. Probable small gallstones within the gallbladder. 6. Mild increased stool within the colon. 7. Nothing acute is otherwise seen on CT study of the abdomen and pelvis. Diagnostic code #9 This report was dictated in [place] Standard Time
[2019-04-18] MEDS ORDERED: cefTRIAXone 1 GM in Premix Bag 1 BAG IV SCH (13:00)
--- NOTE | 2019-04-18 16:30 | PCM.DCSUM1 ---
Discharge Summary - Hospital Course Brief History: This 38 year old female with pmh of Hodgkin lymphoma and DM type 1 presented to the ED with concerns of N/V that started suddenly overnight. She reports she is unable to keep much down and her stomach just feels queasy. She reports she ate out at [employer] last night, chicken strips. She otherwise has been having a very good week after receiving chemotherapy on Sunday. She said she has not had any nausea or issues after this round, which is her second round of chemotherapy. She reports mild cough, no fevers, or chills. No sore throat or chest pain. No dyspnea. She reports nausea with mild abdominal cramping, not overt pain. No diarrhea, she reports constipation. She has been receiving Decadron as outpatient for 4 days after chemo, last Decadron was Sunday. In the ED slight leukocytosis noted at 12,800 Hgb stable. No electrolyte abnormalities notes. UA showed + 1 bacteria and small leukocyte esterase, but she is asymptomatic. CXR revealed parechymal densities on the R, which have improved from previous exams. She reports these are stable and are the cancer, per her Oncologist Dr Paz. She will be admitted for nausea and vomiting. PCP, Dr Son or Dr Lenka Dalton Diagnosis: Stroke: No - Discharge Data Discharge Date: 04/18/19 Discharge Disposition: Home, Self-Care 01 Condition: Good - Referral to Home Health Primary Care Physician: Edgardo Son MD - Discharge Diagnosis/Problem(s) (1) Nausea & vomiting SNOMED Code(s): 31780418 ICD Code: R11.2 - NAUSEA WITH VOMITING, UNSPECIFIED Status: Acute Current Visit: Yes (2) Dehydration SNOMED Code(s): 56682303 ICD Code: E86.0 - DEHYDRATION Status: Acute Current Visit: Yes (3) DM type 1 (diabetes mellitus, type 1) SNOMED Code(s): 68405597 ICD Code: E10.9 - TYPE 1 DIABETES MELLITUS WITHOUT COMPLICATIONS Status: Chronic Current Visit: Yes Qualifiers: Diabetes mellitus complication status: without complication Qualified Code( s): E10.9 - Type 1 diabetes mellitus without complications (4) Hodgkin lymphoma SNOMED Code(s): 002903460 ICD Code: C81.90 - HODGKIN LYMPHOMA, UNSPECIFIED, UNSPECIFIED SITE Status: Chronic Current Visit: No - Patient Instructions Diet: Regular Diet as Tolerated, Drink 8-10+ Glasses/Day Activity: As Tolerated Showering/Bathing: May Shower Notify Provider of: Fever, Increased Pain, Swelling and Redness, Drainage, Nausea and/or Vomiting - Discharge Plan *PRESCRIPTION DRUG MONITORING PROGRAM REVIEWED*: Not Applicable *COPY OF PRESCRIPTION DRUG MONITORING REPORT IN PATIENT DINO: Not Applicable Home Medications: Home Meds Insulin Glarg,Human.Rec.Analog [Lantus] 10 units BEDTIME 03/21/19 [History] Venlafaxine [Effexor] 37.5 mg PO DAILY 03/21/19 [History] Ondansetron [Zofran] 4 mg PO Q8H PRN 04/17/19 [History] Scopolamine [Transderm-Scop] 1 patch TD Q3D 04/17/19 [History] allopurinoL [Zyloprim] 300 mg PO DAILY 04/17/19 [History] Oxygen Therapy Mode: Room Air Patient Handouts: Dehydration, Adult, [id number] Referrals: Mesfin Dalton MD [Resident] - 04/21/19 2:30 pm - Discharge Summary/Plan Comment DC Time >30 min.: No Discharge Summary/Plan Comment: Admitting Diagnoses: N/V Dehydration Discharge Diagnoses: Constipation N/V Dehydration Other PMH: Hodgkin lymphoma Leatha was admitted with nausea and vomiting and dehydration. She was given Zofran, compazine and IVFs during admission. Today she had more abdominal pain, CT abdomen obtained which showed constipation. She was given Dulcolax suppository, she had large BM and is now feeling much improved. SHe is requesting discharge home as she is at baseline. She denies concerns. No chest pain or SOB. She is to return to ED or clinic if concerns should arise. She will follow up with PCP for insulin management and Dr Paz for Oncology management. - Patient Data Vitals - Most Recent: Last Vital Signs Temp 96.9 F 04/18/19 12:44 Pulse 94 04/18/19 12:44 Resp 16 04/18/19 12:44 BP 124/82 04/18/19 12:44 Pulse Ox 95 04/18/19 12:44 Weight - Most Recent: 54.431 kg I&O - Last 24 hours: Intake & Output 04/18/19 04/18/19 04/18/19 06:59 14:59 22:59 Intake Total 1884 Output Total 1400 Balance 484 Lab Results - Last 24 hrs: Laboratory Results - last 24 hr 04/17/19 04/17/19 04/18/19 Range/Units 14:19 16:55 05:08 WBC 13.51 H (4.0-11.0) K/uL RBC 4.10 L (4.30-5.90) M/uL Hgb 9.8 L (12.0-16.0) g/dL Hct 30.5 L (36.0-46.0) % MCV 74.4 L (80.0-98.0) fL MCH 23.9 L (27.0-32.0) pg MCHC 32.1 (31.0-37.0) g/dL RDW Std Deviation 43.7 (28.0-62.0) fl RDW Coeff of [place] 17 H (11.0-15.0) % Plt Count 238 (150-400) K/uL MPV 8.90 (7.40-12.00) fL Add Manual Diff YES Neutrophils % (Manual) 55 (48.0-80.0) % Band Neutrophils % 24 % Lymphocytes % (Manual) 16 (16.0-40.0) % Monocytes % (Manual) 4 (0.0-15.0) % Eosinophils % (Manual) 1 (0.0-7.0) % Nucleated RBC % 0.0 /100WBC Absolute Seg Neuts 7.4 H (1.4-5.7) Band Neutrophils # 3.2 Lymphocytes # (Manual) 2.2 (0.6-2.4) Monocytes # (Manual) 0.5 (0.0-0.8) Eosinophils # (Manual) 0.1 (0.0-0.7) Nucleated RBCs # 0 K/uL Sodium (136-145) mmol/L Potassium (3.5-5.1) mmol/L Chloride (98-107) mmol/L Carbon Dioxide (21.0-32.0) mmol/L BUN (7.0-18.0) mg/dL Creatinine (0.6-1.0) mg/dL Est Cr Clr Drug Dosing mL/min Estimated GFR (MDRD) ml/min Glucose (74-106) mg/dL POC Glucose 137 H (60-110) mg/dL Calcium (8.5-10.1) mg/dL Phosphorus (2.6-4.7) mg/dL Magnesium 1.6 L (1.8-2.4) mg/dL 04/18/19 04/18/19 Range/Units 05:08 11:47 WBC (4.0-11.0) K/uL RBC (4.30-5.90) M/uL Hgb (12.0-16.0) g/dL Hct (36.0-46.0) % MCV (80.0-98.0) fL MCH (27.0-32.0) pg MCHC (31.0-37.0) g/dL RDW Std Deviation (28.0-62.0) fl RDW Coeff of [place] (11.0-15.0) % Plt Count (150-400) K/uL MPV (7.40-12.00) fL Add Manual Diff Neutrophils % (Manual) (48.0-80.0) % Band Neutrophils % % Lymphocytes % (Manual) (16.0-40.0) % Monocytes % (Manual) (0.0-15.0) % Eosinophils % (Manual) (0.0-7.0) % Nucleated RBC % /100WBC Absolute Seg Neuts (1.4-5.7) Band Neutrophils # Lymphocytes # (Manual) (0.6-2.4) Monocytes # (Manual) (0.0-0.8) Eosinophils # (Manual) (0.0-0.7) Nucleated RBCs # K/uL Sodium 140 (136-145) mmol/L Potassium 3.7 (3.5-5.1) mmol/L Chloride 103 (98-107) mmol/L Carbon Dioxide 28.9 (21.0-32.0) mmol/L BUN 11 (7.0-18.0) mg/dL Creatinine 0.4 L (0.6-1.0) mg/dL Est Cr Clr Drug Dosing 167.07 mL/min Estimated GFR (MDRD) > 60.0 ml/min Glucose 122 H (74-106) mg/dL POC Glucose 142 H (60-110) mg/dL Calcium 8.5 (8.5-10.1) mg/dL Phosphorus 3.2 (2.6-4.7) mg/dL Magnesium 2.0 (1.8-2.4) mg/dL LULÚ Results - Last 24 hrs: Microbiology 04/17/19 14:12 Aerobic Blood Culture - Preliminary Blood - Venous - Lab Draw NO GROWTH AFTER 1 DAY Anaerobic Blood Culture - Preliminary NO GROWTH AFTER 1 DAY 04/17/19 13:58 Aerobic Blood Culture - Preliminary Blood - Venous NO GROWTH AFTER 1 DAY Anaerobic Blood Culture - Preliminary NO GROWTH AFTER 1 DAY 04/17/19 12:30 Influenza Type A Antigen Screen - Final Nasopharyngeal Swab NEGATIVE INFLUENZA A VIRUS AG REFERENCE RANGE: NEGATIVE Influenza Type B Antigen Screen - Final NEGATIVE INFLUENZA B VIRUS AG REFERENCE RANGE: NEGATIVE Med Orders - Current: Current Medications Acetaminophen (Tylenol) 650 mg PO Q4H PRN PRN Reason: Pain (mild 1-3) Hydrocodone Bitart/Acetaminophen ([place] 325-5 Mg) 1 tab PO Q4H PRN PRN Reason: Pain Allopurinol (Zyloprim) 300 mg PO DAILY [facility] Last Admin: 04/18/19 08:54 Dose: Not Given Bisacodyl (Dulcolax) 10 mg RECTAL DAILY PRN PRN Reason: Constipation Last Admin: 04/18/19 13:23 Dose: 10 mg Heparin Sodium (Porcine) (Heparin Sodium) 5,000 units SUBCUT Q12H [facility] Last Admin: 04/18/19 11:39 Dose: 5,000 units Sodium Chloride (Normal Saline) 1,000 mls @ 150 mls/hr IV ASDIRECTED [facility] Last Admin: 04/18/19 13:35 Dose: 150 mls/hr Ceftriaxone Sodium/Dextrose 1 (gm/ Premix) 50 mls @ 100 mls/hr IV Q24H [facility] Last Admin: 04/18/19 13:23 Dose: 100 mls/hr Insulin Aspart (Novolog) 0 unit SUBCUT TIDAC [facility]; Protocol Last Admin: 04/18/19 13:34 Dose: Not Given Ondansetron HCl (Zofran) 4 mg IVPUSH Q4H PRN PRN Reason: Nausea Last Admin: 04/18/19 04:10 Dose: 4 mg Prochlorperazine Edisylate (Compazine) 10 mg IVPUSH Q6H PRN PRN Reason: Nausea/Vomiting Last Admin: 04/18/19 08:48 Dose: 10 mg Sodium Chloride (Saline Flush) 10 ml FLUSH ASDIRECTED PRN PRN Reason: Keep Vein Open Last Admin: 04/17/19 12:44 Dose: 10 ml Sodium Chloride (Saline Flush) 2.5 ml FLUSH ASDIRECTED PRN PRN Reason: Keep Vein Open Last Admin: 04/17/19 12:44 Dose: 2.5 ml Venlafaxine HCl (Effexor) 37.5 mg PO BEDTIME [facility] Last Admin: 04/17/19 20:23 Dose: 37.5 mg Discontinued Medications Heparin Sodium (Porcine) (Heparin Lock Flush 100 Units/Ml) 500 units FLUSH NOW STA Stop: 04/18/19 16:21 Sodium Chloride (Normal Saline) 1,000 mls @ 999 mls/hr IV STAT ONE Stop: 04/17/19 13:18 Last Admin: 04/17/19 12:42 Dose: 999 mls/hr Sodium Chloride (Normal Saline) 1,000 mls @ 999 mls/hr IV STAT ONE Stop: 04/17/19 15:05 Last Admin: 04/17/19 14:27 Dose: 999 mls/hr Magnesium Sulfate 2 gm/ Premix 50 mls @ 50 mls/hr IV ONETIME ONE Stop: 04/17/19 17:43 Last Admin: 04/17/19 17:16 Dose: 50 mls/hr Ondansetron HCl (Zofran) 4 mg IVPUSH ONETIME ONE Stop: 04/17/19 12:19 Last Admin: 04/17/19 12:42 Dose: 4 mg Promethazine HCl (Phenergan) 25 mg IM Q6H PRN PRN Reason: Nausea
== END 2019-04-18 16:45 | disposition home or self-care (01) ==
LOC: MW.ED 11:50 → MW.MS 14:22
PROVIDERS: ADMIT Internal Medicine; ATTEND Internal Medicine
DX: R11.2 Nausea with vomiting, unspecified (principal); E86.0 Dehydration; E10.9 Type 1 diabetes mellitus without complications; C81.90 Hodgkin lymphoma, unspecified, unspecified site; D72.829 Elevated white blood cell count, unspecified; Z88.8 Allergy status to other drugs, medicaments and biological substances; Z79.4 Long term (current) use of insulin; Z79.899 Other long term (current) drug therapy
CPT/HCPCS: 36415; 71045; 74176; 80048; 80053; 81001; 82962; 83605; 83690; 83735; 84100; 85025; 87040; 87086; 87804; 93005; 96361; 96374; 99285; A9270; J0696; J0780; J1642; J1644; J2405; J3475; J7030; 96365; 96367; 96372; 96375; 96376; 99284; G0378